=== PATIENT | female | born 1950 | race Caucasian/White ===

== ENCOUNTER 2021-02-19 16:55 | Inpatient (IN) | payer MEDICARE, SELFPAY ==
--- NOTE | ~2021-02-19 | XR_ITS ---
EXAMINATION: XR chest 1V portable DATE: 02/19/2021 17:30 INDICATION: Dyspnea. Productive cough. Possible COVID. TECHNIQUE: frontal view of the chest was obtained. COMPARISON: Chest radiograph dated 05/19/2015 FINDINGS: New opacities in the left mid to lower and right lower lung zones. No pneumothorax or definitive pleu ral effusion. Cardiomegaly. Mild S-shaped thoracic scoliosis. IMPRESSION: 1. New opacities in the left mid to lower and right lower lung zones which could represent atelectasi s and/or pneumonia. 2. Cardiomegaly. Reviewed, dictated and finalized at location . [facility] IMPRESSION: 1. New opacities in the left mid to lower and right lower lung zones which coul d represent atelectasis and/or pneumonia. 2. Cardiomegaly.
--- NOTE | 2021-02-19 17:16 | ECG_ITS ---
Measurements Intervals [place] Rate: 98 P: -66 [place]: 113 QRS: -11 QRSD: 94 T: 62 QT: 364 QTc: 466 Interpretive Statements SINUS RHYTHM FREQUENT ATRIAL PREMATURE COMPLEXES VOLTAGE CRITERIA FOR LVH POOR R WAVE PROGRESSION, ANTERIOR LEADS ABNORMAL ECG Electronically Signed On 02-19-2021 20:04:11 [place] [employer] by Prasanna Joseph D.O.
--- NOTE | 2021-02-19 17:18 | ED.SOB ---
HPI - SOB/Dyspnea General Chief Complaint: Shortness of Breath/Dyspnea Stated Complaint: amb Time Seen by Provider: 02/19/21 17:18 Source: patient and family Mode of arrival: EMS Limitations: no limitations History of Present Illness HPI Narrative: 70-year-old woman brought to the emergency department today by EMS for shortness of breath that started yesterday. Her family called EMS because she was too weak to get up. States that she has no chest pain, fever, vomiting, diarrhea, abdominal pain or dysuria. Her at home has recently tested positive for COVID. Family states that she is having hallucinations. Patient denies this. MD elicited complaint: shortness of breath Pertinent past history: COPD and congestive heart failure Onset (ago): day(s) (1) Timing: constant and progressively worsening Severity: moderate Exacerbating factors: lying flat and exertion Relieving factors: oxygen and bronchodilators Known history of: COPD and congestive heart failure Associated symptoms: cough, sputum production and orthopnea Treatment prior to arrival: oxygen and bronchodilator Related Data Home oxygen amount: 2 liters Home Medications Medication Instructions Recorded Confirmed albuterol sulfate 2 inh INHALATION Q4H PRN 02/19/21 02/19/21 albuterol sulfate 2.5 mg INHALATION QID PRN 02/19/21 02/19/21 furosemide 40 mg PO BID 02/19/21 02/19/21 Allergies Allergy/AdvReac Type Severity Reaction Status Date / Time ciprofloxacin [Cipro] Allergy Intermediate Unknown Verified 02/19/21 17:38 clindamycin Allergy Intermediate Unknown Verified 02/19/21 17:38 lisinopril Allergy Intermediate Unknown Verified 02/19/21 17:38 losartan Allergy Intermediate Unknown Verified 02/19/21 17:38 meloxicam Allergy Intermediate Unknown Verified 02/19/21 17:38 meperidine [Demerol] Allergy Intermediate Unknown Verified 02/19/21 17:38 metoprolol Allergy Intermediate Unknown Verified 02/19/21 17:38 Penicillins Allergy Intermediate Unknown Verified 02/19/21 17:38 sulfamethoxazole [Bactrim] Allergy Intermediate Unknown Verified 02/19/21 17:38 trimethoprim [Bactrim] Allergy Intermediate Unknown Verified 02/19/21 17:38 methylprednisolone Allergy Swelling Verified 02/19/21 17:38 Review of Systems Review of Systems: All systems reviewed & are unremarkable except as noted in HPI and below Constitutional: Constitutional: Denies chills and Denies fever(s) ENT: Denies nasal congestion and Denies sore throat Cardiovascular: Cardiovascular: Denies chest pain and Denies radiating jaw, neck or arm pain Respiratory: Respiratory: Reports chest congestion, Reports cough, Reports dyspnea and Reports wheezing Gastrointestinal: Gastrointestinal: Denies abdominal pain, Denies diarrhea, Denies nausea and Denies vomiting Genitourinary: Genitourinary: Denies hematuria, Denies nocturia and Denies dysuria Musculoskeletal: Musculoskeletal: Denies back pain, Denies arthralgias and Denies joint swelling Integumentary/Breasts: Skin/Breast: Denies pruritus, Denies erythema and Denies rash Neurologic: Denies vertigo, Denies dizziness, Denies syncope, Denies focal weakness and Reports weakness Allergic/Immunologic: Allergic/Immunologic: Denies lip swelling and Denies throat swelling FOR[facility]LY [facility], [facility] Past Medical History Medical History (Updated 02/20/21 @ 03:17 by Andi Raya MD) Congestive heart failure (CHF) COPD (chronic obstructive pulmonary disease) Surgical History Surgical History (Updated 02/19/21 @ 17:25 by Andi Raya MD) History of hysterectomy Social History Social History (Updated 02/19/21 @ 17:25 by Andi Raya MD) Smoking packs per day: 1 Smoking cigarettes per day: 20.0 Years smoked: 31 Smoking pack-years: 31.00 Smoking status: Current every day smoker Tobacco type: cigarettes Alcohol intake: never Substance use: never Substance use type: does not use Living arrangements: with family Spiritual care concerns: No
[2021-02-19] MEDS: ACETAMINOPHEN 500 MG TABLET 1000 MG PO (17:40)
[2021-02-19 17:43] VITALS: BP 186/76; PULSE 99; RESP 20; TEMP 38.1; O2SAT 93
[2021-02-19 18:04] LABS: Base Excess ABG 12.6 mmol/L (0-2); HCO3 ABG 38.9 mmol/L (23-29); Oxygen Content ABG 16.8 %vol (16.0-22.0); Oxygen Saturation ABG 87.9 % (95-97); PCO2 ABG 56.4 mmHg (35-45); PO2 ABG 50.4 mmHg (75-85); Total Hemoglobin 13.8 g/dL (12.0-18.0); pH ABG 7.46 (7.35-7.45)
[2021-02-19 18:07] LABS: Basophils Absolute Auto 0.01 K/mm3 (0.00-0.10); Basophils Percent Auto 0.2 % (0.0-1.0); Hematocrit 43.1 % (35.0-42.0); Hemoglobin 13.7 g/dL (11.7-13.8); Immature Granulocyte Absolute 0.03 K/mm3 (0.00-0.00); Immature Granulocyte Percent A 0.5 % (0.0-0.0); Lymphocytes Percent Auto 11.7 % (18.0-42.0); Mean Corpuscular HGB Conc 31.8 g/dL (32.0-36.0); Mean Corpuscular Hemoglobin 30.3 pg (27.0-31.0); Mean Corpuscular Volume 95.4 fL (78.0-102.0); Mean Platelet Volume 12.3 fl (9.2-11.8); Monocytes Absolute Auto 0.35 K/mm3 (0.10-0.90); Monocytes Percent Auto 5.9 % (2.0-11.0); Neutrophils Absolute Auto 4.9 K/mm3 (1.7-7.2); Neutrophils Percent Auto 81.7 % (50.0-70.0); Platelet Count Result 109 K/mm3 (150-420); Red Blood Count 4.52 M/mm3 (4.20-5.40); Red Cell Distribution Width 12.9 % (11.6-14.4)
[2021-02-19 18:10] LABS: Device NASAL CANNULA; Modified Allen's Test Pass; Site Drawn RIGHT RADIAL
[2021-02-19 18:23] LABS: INR 1.1; Partial Thromboplastin Time 28.8 SEC (23.90-30.70); Prothrombin Time 11.2 Seconds (9.50-12.10)
[2021-02-19 18:27] LABS: D Dimer 1.36 mg/L (0.19-0.50)
[2021-02-19 18:29] LABS: Alanine Aminotransferase 62 U/L (14-59); Albumin Level 3.1 g/dL (3.4-5.0); Alkaline Phosphatase 73 U/L (46-116); Anion Gap 5 mmol/L (8-16); Aspartate Amino Transferase 232 U/L (15-37); Bilirubin,Total 0.8 mg/dL (0.00-1.00); Blood Urea Nitrogen 27 mg/dL (7-18); Calcium 8.4 mg/dL (8.5-10.1); Carbon Dioxide 39 mmol/L (21-32); Chloride 95 mmol/L (98-108); Estimated CRCL calculation 52 ml/min; Estimated Glomerular Filt Rate 53; Glucose 109 mg/dL (70-99); Magnesium 2.2 mg/dL (1.8-2.4); NT Pro B Type Natriuretic Pept 2735 pg/mL (0-125); Osmolality Calculated 294 mOsm/kg (285-295); Sodium 139 mmol/L (136-145); Total Protein 6.9 g/dL (6.4-8.2)
[2021-02-19 18:32] LABS: Troponin I 249.4 ng/L (0.00-60.4)
--- NOTE | 2021-02-19 18:34 | PC.NURSE ---
patient is a full code
[2021-02-19 18:36] VITALS: BP 140/48; PULSE 78; RESP 20; O2SAT 94
[2021-02-19 18:43] LABS: Influenza A QL RT-PCR Negative (Negative); Influenza B QL RT-PCR Negative (Negative); SARS-CoV-2 RNA PCR Positive (Negative)
[2021-02-19 18:47] LABS: Lactic Acid Reflex 1.6 mmol/L (0.4-2.0)
[2021-02-19 19:00] VITALS: PULSE 85
[2021-02-19 19:11] VITALS: BP 129/61; PULSE 88; RESP 24; TEMP 36.6; O2SAT 94
[2021-02-19] MEDS: ASPIRIN 81 MG CHEWABLE TABLET 324 MG PO (19:20)
[2021-02-19] MEDS: ENOXAPARIN 100 MG/ML SYRINGE SUB-Q (19:25)
[2021-02-19 19:55] VITALS: BP 117/95; PULSE 82; RESP 20; TEMP 37.2; O2SAT 93
[2021-02-19 20:45] VITALS: BP 115/61; PULSE 88; RESP 20; TEMP 36.4; O2SAT 94; O2SAT 98; BMI 37.9
--- NOTE | 2021-02-19 20:45 | ADMGEN ---
This patient, Omayra Sampson, was admitted to 2nd Floor Room 211-1. Patient oriented to hospital policies and general routines including ID bracelet, bed and alarms, visiting hours, pain management, procedures, bathroom and other care routines, personal items, smoking policy, room service/diet, and visiting hours. Information on how to activate the Rapid Response Team has been discussed. Patient are encouraged to report perceived risks to care and to ask questions if they do not understand what they are told or what they should do. Patient transferred to bed from chair with pivot transfer with 1 assist. Patient stated that at home she has to have assistance to ambulate but does not use a cane or walker.
[2021-02-19 21:34] LABS: Troponin I 240.2 ng/L (0.00-60.4)
[2021-02-19] MEDS: REMDESIVIR 200 MG/NS 250 ML 200 MG/250 ML BAG 250 MG IVPB (22:25)
[2021-02-20] VITALS (18 sets, daily range): BP systolic 125–149; BP diastolic 48–67; PULSE 78–136; RESP 18–20; TEMP 35.9–36.9; O2SAT 92–98
[2021-02-20] MEDS: FUROSEMIDE INJ 40 MG/4 ML VIAL IV PUSH (00:28)
[2021-02-20 00:46] LABS: Troponin I 211.1 ng/L (0.00-60.4)
--- NOTE | 2021-02-20 04:55 | PC.NURSE ---
Patient's telemetry noted to be reading/alarming A-FIB with heart rate 120's-140's. Patient had just finished being assisted to/from bedside commode per 2 nurses with gait belt. Patient notably SOB with transfer with audible wheezes. O2 on @ 4 lpm/nc. Dr Raya notified with new order received for 12 lead EKG to be done.
--- NOTE | 2021-02-20 05:00 | ECG_ITS ---
Measurements Intervals [place] Rate: 128 P: [place]: 0 QRS: 5 QRSD: 93 T: 75 QT: 309 QTc: 451 Interpretive Statements ATRIAL FIBRILLATION WITH RAPID VENTRICULAR RESPONSE BORDERLINE R WAVE PROGRESSION, ANTERIOR LEADS NONSPECIFIC ST & T-WAVE ABNORMALITY- HIGH LATERAL LEADS ABNORMAL ECG Electronically Signed On 02-20-2021 6:10:53 F[employer] by Prasanna Joseph D.O.
--- NOTE | 2021-02-20 05:20 | PC.NURSE ---
EKG finished. Dr Raya aware of results. No new orders @ this time.
[2021-02-20 05:38] LABS: Basophils Absolute Auto 0.02 K/mm3 (0.00-0.10); Basophils Percent Auto 0.4 % (0.0-1.0); Hematocrit 42.9 % (35.0-42.0); Hemoglobin 13.4 g/dL (11.7-13.8); Immature Granulocyte Absolute 0.02 K/mm3 (0.00-0.00); Immature Granulocyte Percent A 0.4 % (0.0-0.0); Immature Platelet Fraction Pct 8.1 % (1.0-7.0); Lymphocytes Absolute Auto 0.58 K/mm3 (1.10-4.50); Lymphocytes Percent Auto 11.2 % (18.0-42.0); Mean Corpuscular HGB Conc 31.2 g/dL (32.0-36.0); Mean Corpuscular Hemoglobin 29.7 pg (27.0-31.0); Mean Corpuscular Volume 95.1 fL (78.0-102.0); Mean Platelet Volume 12.1 fl (9.2-11.8); Monocytes Absolute Auto 0.25 K/mm3 (0.10-0.90); Monocytes Percent Auto 4.8 % (2.0-11.0); Neutrophils Absolute Auto 4.3 K/mm3 (1.7-7.2); Neutrophils Percent Auto 83.2 % (50.0-70.0); Platelet Count Result 92 K/mm3 (150-420); Red Blood Count 4.51 M/mm3 (4.20-5.40); Red Cell Distribution Width 12.9 % (11.6-14.4); White Blood Count 5.2 K/mm3 (4.8-10.8)
[2021-02-20 05:50] LABS: INR 1.1; Prothrombin Time 11.4 Seconds (9.50-12.10)
[2021-02-20 05:52] LABS: Alanine Aminotransferase 57 U/L (14-59); Albumin Level 2.8 g/dL (3.4-5.0); Alkaline Phosphatase 66 U/L (46-116); Anion Gap 2 mmol/L (8-16); Aspartate Amino Transferase 190 U/L (15-37); Bilirubin,Total 0.6 mg/dL (0.00-1.00); Blood Urea Nitrogen 29 mg/dL (7-18); Calcium 8.2 mg/dL (8.5-10.1); Carbon Dioxide 42 mmol/L (21-32); Chloride 97 mmol/L (98-108); Estimated CRCL calculation 48 ml/min; Estimated Glomerular Filt Rate 48; Glucose 105 mg/dL (70-99); Osmolality Calculated 297 mOsm/kg (285-295); Potassium 3.7 mmol/L (3.5-5.1); Sodium 141 mmol/L (136-145); Total Protein 6.4 g/dL (6.4-8.2)
[2021-02-20 05:53] LABS: Troponin I 219.3 ng/L (0.00-60.4)
[2021-02-20] MEDS: dilTIAZem HCl INJ 25 MG/5 ML VIAL 10 MG IV PUSH (06:12)
[2021-02-20] MEDS: dilTIAZem 100 MG/100 ML 100 MG/100 ML BAG IV CONT (06:13)
[2021-02-20] MEDS: ALBUTEROL SULFATE (*SP) INHALER 4 PUFF INHALATION ×5 (06:36→20:48)
[2021-02-20] MEDS: TOLNAFTATE 1% POWDER 45 GM BTL 1 APPLIC TOPICAL ×2 (09:59→16:01)
[2021-02-20] MEDS: ENOXAPARIN 100 MG/ML SYRINGE SUB-Q ×2 (10:00→20:48)
[2021-02-20] MEDS: UMECLIDINIUM/VILANTEROL 62.5-25 MCG ELLIPTA 1 PUFF INHALATION (10:00)
[2021-02-20] MEDS: FUROSEMIDE INJ 40 MG/4 ML VIAL 20 MG IV PUSH ×2 (11:30→16:00)
--- NOTE | 2021-02-20 11:50 | PC.NURSE ---
Patient taken down for Lung scan and ECHO, patient unable to tolerate laying reclined on back. Patient unable to have tests performed. Patient back to room, sitting up in chair. IV Diltiazem cont infusing. 02@4l on. Call light at side. Lunch tray delivered and set up.
[2021-02-20 12:11] LABS: Base Excess ABG 13.3 mmol/L (0-2); HCO3 ABG 39.6 mmol/L (23-29); Oxygen Content ABG 18.5 %vol (16.0-22.0); Oxygen Saturation ABG 93.4 % (95-97); Oxyhemoglobin 92.7 % (94-100); PCO2 ABG 56.4 mmHg (35-45); PO2 ABG 64.5 mmHg (75-85); Total Hemoglobin 14.2 g/dL (12.0-18.0); pH ABG 7.46 (7.35-7.45)
[2021-02-20 12:12] LABS: Device NASAL CANNULA; Modified Allen's Test Pass; Site Drawn LEFT RADIAL
--- NOTE | 2021-02-20 12:34 | PM.IMHP ---
H&P: HPI History of Present Illness Date/Time: 02/20/21 12:34 Omayra Sampson is a 70 year old female who is being admitted for COVID. Pt states she has COPD and is on home oxygen at 2.5 L/min. She noticed herself becoming more SOB recently. She contracted COVID from her who recently tested positive. Pt states that she will become more SOB with getting up and moving about. According to ER report EMS was called by family as Pt was too weak to get up on her own. PT states that she is a smoker but has not been able to smoke over the last 7 days d/t her increased SOB. She denies fever, chills, chest pain, palpitations, muscle and body aches, abdominal issues, changes in bowel or bladder function. Currently her Oxygen is at 4 L/min. An ABG was obtained and Pt will be changed over to HFNC 50/60%. Will obtain follow up ABG. <SHANKAR Pelletier - Last Filed: 02/20/21 14:01> Chief Complaint: SOB <SHANKAR Pelletier - Last Filed: 02/20/21 14:01> Review of Systems Constitutional: Constitutional: Reports no additional constitutional complaints, Denies body ache(s), Denies chills, Denies fever(s), Denies frequent falls and Denies headache(s) <SHANKAR Pelletier - Last Filed: 02/20/21 14:01> Cardiovascular: Cardiovascular: Reports no additional cardiovascular complaints, Denies chest pain, Denies chest pain at rest and Denies lightheadedness <SHANKAR Pelletier - Last Filed: 02/20/21 14:01> Respiratory: Respiratory: Reports no additional respiratory complaints, Denies cough, Denies hemoptysis, Reports dyspnea and Reports dyspnea on exertion <SHANKAR Pelletier - Last Filed: 02/20/21 14:01> Gastrointestinal: Gastrointestinal: Reports no additional gastrointestinal complaints <SHANKAR Pelletier - Last Filed: 02/20/21 14:01> Genitourinary: Genitourinary: Reports no additional female genitourinary complaints <SHANKAR Pelletier - Last Filed: 02/20/21 14:01> Musculoskeletal: Musculoskeletal: Reports no additional musculoskeletal complaints <SHANKAR Pelletier - Last Filed: 02/20/21 14:01> Neurologic: Reports system reviewed and no additional complaints, except as documented <SHANKAR Pelletier - Last Filed: 02/20/21 14:01> Psychiatric: Psychiatric: Reports no additional psychiatric complaints <SHANKAR Pelletier - Last Filed: 02/20/21 14:01> [facility] Past Medical History Medical History: Medical History (Updated 02/20/21 @ 13:57 by SHANKAR Pelletier) Acute upper respiratory infection (02/14/15) CHF (congestive heart failure) (05/23/15) Chronic cough (12/16/14) Cigarette smoker (01/28/17) COPD (chronic obstructive pulmonary disease) Fatigue (12/24/16) Hip pain (06/27/15) HTN (hypertension) (12/27/14) Rash (12/18/16) <SHANKAR Pelletier - Last Filed: 02/20/21 14:01> Surgical History Surgical History: Surgical History History of hysterectomy <SHANKAR Pelletier - Last Filed: 02/20/21 14:01> Social History Social History: Social History Smoking packs per day: 1 Smoking cigarettes per day: 20.0 Years smoked: 31 Smoking pack-years: 31.00 Smoking status: Current every day smoker Tobacco type: cigarettes Alcohol intake: never Substance use: never Substance use type: does not use Spiritual care concerns: No <SHANKAR Pelletier - Last Filed: 02/20/21 14:01> Meds Home Medications and Allergies Home medications: Home Medications Medication Instructions Recorded Confirmed Type albuterol sulfate 2 inh INHALATION Q4H PRN 02/19/21 02/19/21 History albuterol sulfate 2.5 mg INHALATION QID PRN #90 ml 02/27/21 Rx apixaban [Eliquis] 5 mg PO BID #120 tablet 02/27/21 Rx cefdinir 300 mg PO Q12H 5 Days #10 cap 02/27/21 Rx clopidogrel 75 mg PO QAM #30 tablet 02/27/21 Rx dexamethasone 6 mg PO DAILY 3 Days #3 tablet
[2021-02-20 13:54] LABS: Base Excess ABG 15.9 mmol/L (0-2); HCO3 ABG 43.3 mmol/L (23-29); Oxygen Content ABG 19.2 %vol (16.0-22.0); Oxygen Saturation ABG 97.3 % (95-97); Oxyhemoglobin 96.8 % (94-100); PCO2 ABG 64.2 mmHg (35-45); PO2 ABG 102.8 mmHg (75-85); pH ABG 7.45 (7.35-7.45)
[2021-02-20 13:55] LABS: Device HIGH FLOW THERAPY; Fractional Inspired Oxygen 60 %; Modified Allen's Test Pass; Site Drawn RIGHT RADIAL
[2021-02-20] MEDS: ACETAMINOPHEN 325 MG TABLET 650 MG PO (16:01)
[2021-02-20] MEDS: REMDESIVIR 100 MG/NS 250 ML 100 MG/250 ML BAG 250 MG IVPB (22:08)
[2021-02-20] MEDS: ONDANSETRON INJ 4 MG/2 ML VIAL IV PUSH (22:49)
[2021-02-21] VITALS (9 sets, daily range): BP systolic 128–154; BP diastolic 46–78; PULSE 18–98; RESP 18–20; TEMP 36.2–36.9; O2SAT 92–98
[2021-02-21 05:50] LABS: Hematocrit 42.1 % (35.0-42.0); Hemoglobin 13.4 g/dL (11.7-13.8); Immature Granulocyte Absolute 0.01 K/mm3 (0.00-0.00); Immature Granulocyte Percent A 0.2 % (0.0-0.0); Immature Platelet Fraction Pct 8.6 % (1.0-7.0); Lymphocytes Absolute Auto 0.48 K/mm3 (1.10-4.50); Lymphocytes Percent Auto 11.5 % (18.0-42.0); Mean Corpuscular HGB Conc 31.8 g/dL (32.0-36.0); Mean Corpuscular Hemoglobin 30.5 pg (27.0-31.0); Mean Corpuscular Volume 95.7 fL (78.0-102.0); Mean Platelet Volume 12.3 fl (9.2-11.8); Monocytes Absolute Auto 0.24 K/mm3 (0.10-0.90); Monocytes Percent Auto 5.7 % (2.0-11.0); Neutrophils Absolute Auto 3.5 K/mm3 (1.7-7.2); Neutrophils Percent Auto 82.6 % (50.0-70.0); Platelet Count Result 113 K/mm3 (150-420); White Blood Count 4.2 K/mm3 (4.8-10.8)
[2021-02-21 06:01] LABS: INR 1.1
[2021-02-21 06:16] LABS: Alanine Aminotransferase 51 U/L (14-59); Albumin Level 2.6 g/dL (3.4-5.0); Alkaline Phosphatase 63 U/L (46-116); Anion Gap -2 mmol/L (8-16); Aspartate Amino Transferase 133 U/L (15-37); Bilirubin,Total 0.4 mg/dL (0.00-1.00); Blood Urea Nitrogen 31 mg/dL (7-18); Calcium 8.5 mg/dL (8.5-10.1); Carbon Dioxide 44 mmol/L (21-32); Chloride 100 mmol/L (98-108); Estimated CRCL calculation 53 ml/min; Estimated Glomerular Filt Rate 54; Glucose 140 mg/dL (70-99); NT Pro B Type Natriuretic Pept 4700 pg/mL (0-125); Osmolality Calculated 302 mOsm/kg (285-295); Potassium 4.3 mmol/L (3.5-5.1); Sodium 142 mmol/L (136-145); Total Protein 6.2 g/dL (6.4-8.2)
[2021-02-21] MEDS: ALBUTEROL SULFATE (*SP) INHALER 4 PUFF INHALATION ×4 (07:03→20:18)
[2021-02-21 08:40] LABS: Base Excess ABG 15.1 mmol/L (0-2); HCO3 ABG 43.4 mmol/L (23-29); Oxygen Saturation ABG 95.7 % (95-97); Oxyhemoglobin 95.3 % (94-100); PO2 ABG 83.3 mmHg (75-85); Total Hemoglobin 13.4 g/dL (12.0-18.0)
[2021-02-21 08:45] LABS: Device HIGH FLOW NASAL CANN; Modified Allen's Test Pass; Site Drawn RIGHT RADIAL
[2021-02-21] MEDS: UMECLIDINIUM/VILANTEROL 62.5-25 MCG ELLIPTA 1 PUFF INHALATION (09:02)
[2021-02-21] MEDS: ENOXAPARIN 100 MG/ML SYRINGE SUB-Q ×2 (09:03→20:17)
[2021-02-21] MEDS: FUROSEMIDE INJ 40 MG/4 ML VIAL 20 MG IV PUSH ×2 (09:03→18:05)
[2021-02-21] MEDS: ACETAMINOPHEN 325 MG TABLET 650 MG PO ×2 (09:04→22:04)
[2021-02-21] MEDS: TOLNAFTATE 1% POWDER 45 GM BTL 1 APPLIC TOPICAL ×2 (09:06→18:07)
--- NOTE | 2021-02-21 12:54 | PM.IMPN ---
Progress Note: A&P Assessment and Plan (1) COVID-19: Code(s): U07.1 - COVID-19 <Ashok DuffVENKATA-C - Last Filed: 02/21/21 13:21> Status: Acute <Ashok Duff ASSOCIATE PRODUCER-C - Last Filed: 02/21/21 13:21> Assessment and Plan: Remdesivir, Decadron, Lovenox, Albuterol, Supplemental Oxygen with HFNC 50/60% with SpO2 @ 97%,Rocephin, Pt states she is allergic to Azithromycin, Post intervention ABG: pH 7.45, pCO2 64.2, pO2 102.8, HCO3 43.3, O2 Sat 97.3; PT/INR 11.4/1.1, BUN 29, Cr 1.13, eCrCl 48, AST/ALT 57/66 02/21/2021 Lung sounds slight improved, no rales but diminished on the left posteriorly, continue with above regimen, pCO2 increased with a slight decreased in pO2, settings on HFNC changed, see RT/RN report, PT/INR 12.1, BUN 31, Cr 1.02, eCrCl 53, AST/ALT 133/51 <Ashok Duff ASSOCIATE PRODUCER-C - Last Filed: 02/21/21 13:21> (2) CHF (congestive heart failure): Onset Date: 05/23/15 <Ashok DuffRICN-C - Last Filed: 02/21/21 13:21> Code(s): I50.9 - Heart failure, unspecified <Ashok DuffVENKATA-C - Last Filed: 02/21/21 13:21> Status: Acute <Ashok Duff ASSOCIATE PRODUCER-C - Last Filed: 02/21/21 13:21> Assessment and Plan: BNP 2735, Lasix 40 mg in ER with 20 mg BID currently, monitoring I&O, supplemental Oxygen as noted above, monitor BNP and SpO2 02/21/2021 BNP increased to 4700, continue with Lasix, renal function improved, Pt states breathing improved <Ashok Duff ASSOCIATE PRODUCER-C - Last Filed: 02/21/21 13:21> (3) Atrial fibrillation with rapid ventricular response: Code(s): I48.91 - Unspecified atrial fibrillation <Ashok Solanastasiya ASSOCIATE PRODUCER-C - Last Filed: 02/21/21 13:21> Status: Acute <Ashok Duff ASSOCIATE PRODUCER-C - Last Filed: 02/21/21 13:21> Assessment and Plan: Cardizem drip at 7.5 mg/hr, will convert to Cardizem CD 240 mg PO Daily, Currently Lovenox, continue to monitor, no CP 02/21/2021 Pt unable to lay down for Echocardiogram nor for CTA of the chest for PE, D-Dimer was 1.36 on 02/19/2021, rate controlled with Cardizem <Ashok Solanastasiya, ASSOCIATE PRODUCER-C - Last Filed: 02/21/21 13:21> (4) Acute kidney injury: Code(s): N17.9 - Acute kidney failure, unspecified <Ashok Solanastasiya ASSOCIATE PRODUCER-C - Last Filed: 02/21/21 13:21> Status: Acute <Ashok Solanastasiya ASSOCIATE PRODUCER-C - Last Filed: 02/21/21 13:21> Assessment and Plan: eCrCl 52 - 48, Lasix for CHF, monitor renal function 02/21/2021 eCrCl improved to 1.02, continue to monitor d/t COVID regimen and MINNA <Ashok ChahalJavier Ebenezeranastasiya ASSOCIATE PRODUCER-C - Last Filed: 02/21/21 13:21> (5) Dyspnea: Onset Date: 05/19/15 <Ashok Solanastasiya ASSOCIATE PRODUCER-C - Last Filed: 02/21/21 13:21> Code(s): R06.00 - Dyspnea, unspecified <Ashok ChahalJavier Ebenezeranastasiya, ASSOCIATE PRODUCER-C - Last Filed: 02/21/21 13:21> Status: Acute <Ashok Alexys Solanastasiya, ASSOCIATE PRODUCER-C - Last Filed: 02/21/21 13:21> Assessment and Plan: Monitoring A fib, cardiac monitoring, SpO2 monitoring, currently HFNC 50/60% SpO2 97% 02/21/2021 Improved, still unable to lay down for other diagnostic studies <Ashok ChahalJavier Ebenezeranastasiya ASSOCIATE PRODUCER-C - Last Filed: 02/21/21 13:21> (6) COPD (chronic obstructive pulmonary disease): Qualifiers: COPD type: emphysema Emphysema type: unspecified Qualified Code(s): J43.9 - Emphysema, unspecified <RIC PelletierN-C - Last Filed: 02/21/21 13:21> Code(s): J44.9 - Chronic obstructive pulmonary disease, unspecified <Ashok Duff ASSOCIATE PRODUCER-C - Last Filed: 02/21/21 13:21> Status: Acute <RIC PelletierN-C - Last Filed: 02/21/21 13:21> Assessment and Plan: Albuterol, Anoro Ellipta <RIC PelletierN-C - Last Filed: 02/21/21 13:21> (7) Elevated troponin: Code(s): R77.8 - Other specified abnormalities of plasma proteins <RIC PelletierN-C - Last Filed: 02/21/21 13:21> Status: Acute <Ashok Duff ASSOCIATE PRODUCER-C - Last Filed: 02/21/21 13:21> Assessment and Plan:
[2021-02-21 13:30] LABS: Base Excess ABG 9.6 mmol/L (0-2); Device HIGH FLOW NASAL CANN; Fractional Inspired Oxygen 40 %; HCO3 ABG 35.6 mmol/L (23-29); Modified Allen's Test Pass; Oxygen Content ABG 18.5 %vol (16.0-22.0); Oxygen Saturation ABG 93.6 % (95-97); Oxyhemoglobin 93.1 % (94-100); PCO2 ABG 53.4 mmHg (35-45); PO2 ABG 69.7 mmHg (75-85); Site Drawn RIGHT RADIAL; Total Hemoglobin 14.1 g/dL (12.0-18.0); pH ABG 7.44 (7.35-7.45)
[2021-02-21] MEDS: REMDESIVIR 100 MG/NS 250 ML 100 MG/250 ML BAG 250 MG IVPB (22:06)
[2021-02-22] VITALS (11 sets, daily range): BP systolic 126–148; BP diastolic 51–61; PULSE 73–85; RESP 16–26; TEMP 35.8–36.7; O2SAT 94–97
--- NOTE | 2021-02-22 00:45 | PC.NURSE ---
Upon assessment and entering room, pt resting in bed and has no c/o at this time. Hi flow O2 therapy in place at 55L and 40%. Pt maintaining Spo2 of 95% at this time. Mon. showing A Fib. Pt is alert and has call valdivia at side.
--- NOTE | 2021-02-22 02:12 | PC.NURSE ---
Pt repositioned in bed for comfort, reports sleeping on and off, no other requests at this time. Call valdivia at pt side.
--- NOTE | 2021-02-22 03:31 | PC.NURSE ---
Pt sleeping, no distress noted, hi flow O2 in place and mon continues to show Afib c rate of 70.
--- NOTE | 2021-02-22 05:10 | PC.NURSE ---
Pt assisted from bed to BSC and jhoana well. Pt had no BM at this time, then SBA back to bed. Hi flow O2 continues, call valdivia at pt side.
[2021-02-22 05:16] LABS: Hematocrit 43.4 % (35.0-42.0); Hemoglobin 13.8 g/dL (11.7-13.8); Mean Corpuscular HGB Conc 31.8 g/dL (32.0-36.0); Mean Corpuscular Hemoglobin 30.7 pg (27.0-31.0); Mean Corpuscular Volume 96.7 fL (78.0-102.0); Mean Platelet Volume 11.7 fl (9.2-11.8); Platelet Count Result 149 K/mm3 (150-420); Red Blood Count 4.49 M/mm3 (4.20-5.40); Red Cell Distribution Width 13.1 % (11.6-14.4); White Blood Count 6.9 K/mm3 (4.8-10.8)
[2021-02-22 05:31] LABS: INR 1.2; Prothrombin Time 12.3 Seconds (9.50-12.10)
[2021-02-22 05:39] LABS: Alanine Aminotransferase 49 U/L (14-59); Albumin Level 2.7 g/dL (3.4-5.0); Alkaline Phosphatase 61 U/L (46-116); Anion Gap 1 mmol/L (8-16); Aspartate Amino Transferase 94 U/L (15-37); Bilirubin,Total 0.5 mg/dL (0.00-1.00); Blood Urea Nitrogen 37 mg/dL (7-18); Calcium 8.4 mg/dL (8.5-10.1); Carbon Dioxide 43 mmol/L (21-32); Chloride 98 mmol/L (98-108); Estimated CRCL calculation 48 ml/min; Estimated Glomerular Filt Rate 47; Glucose 150 mg/dL (70-99); NT Pro B Type Natriuretic Pept 3549 pg/mL (0-125); Osmolality Calculated 305 mOsm/kg (285-295); Potassium 4.2 mmol/L (3.5-5.1); Sodium 142 mmol/L (136-145); Total Protein 6.4 g/dL (6.4-8.2)
[2021-02-22] MEDS: ALBUTEROL SULFATE (*SP) INHALER 4 PUFF INHALATION ×4 (06:06→21:30)
[2021-02-22] MEDS: ONDANSETRON INJ 4 MG/2 ML VIAL IV PUSH (06:32)
--- NOTE | 2021-02-22 07:57 | PC.NURSE ---
Pt refuses to have echo done. States They know I can't lie flat. RN called radiology to let them know and David JUSTIN was informed.
[2021-02-22] MEDS: ENOXAPARIN 100 MG/ML SYRINGE SUB-Q ×2 (08:00→21:30)
[2021-02-22] MEDS: TOLNAFTATE 1% POWDER 45 GM BTL 1 APPLIC TOPICAL ×2 (09:15→17:30)
[2021-02-22] MEDS: UMECLIDINIUM/VILANTEROL 62.5-25 MCG ELLIPTA 1 PUFF INHALATION (09:39)
[2021-02-22] MEDS: FUROSEMIDE INJ 40 MG/4 ML VIAL 20 MG IV PUSH ×2 (09:41→17:30)
[2021-02-22] MEDS: CLOPIDOGREL BISULFATE 75 MG TABLET PO (09:43)
[2021-02-22] MEDS: ACETAMINOPHEN 325 MG TABLET 650 MG PO (09:43)
--- NOTE | 2021-02-22 12:41 | PM.IMPN ---
Progress Note: A&P Assessment and Plan (1) COVID-19: Code(s): U07.1 - COVID-19 <SHANKAR Pelletier - Last Filed: 02/22/21 13:40> Status: Acute <Ashok Alexys SHANKAR Duff - Last Filed: 02/22/21 13:40> Assessment and Plan: Remdesivir, Decadron, Lovenox, Albuterol, Supplemental Oxygen with HFNC 50/60% with SpO2 @ 97%,Rocephin, Pt states she is allergic to Azithromycin, Post intervention ABG: pH 7.45, pCO2 64.2, pO2 102.8, HCO3 43.3, O2 Sat 97.3; PT/INR 11.4/1.1, BUN 29, Cr 1.13, eCrCl 48, AST/ALT 57/66 02/21/2021 Lung sounds slight improved, no rales but diminished on the left posteriorly, continue with above regimen, pCO2 increased with a slight decreased in pO2, settings on HFNC changed, see RT/RN report, PT/INR 121.1, BUN 31, Cr 1.02, eCrCl 53, AST/ALT 133/51 02/22/2021 Labs stable, breathing improved, weaning HFNC, Last ABG from 02/21/21: pH 7.44, pCO2 53.4, pO2 69.7, HCO3 35.6, O2 Sat 93.6 <SHANKAR Pelletier - Last Filed: 02/22/21 13:40> (2) CHF (congestive heart failure): Onset Date: 05/23/15 <SHANKAR Pelletier - Last Filed: 02/22/21 13:40> Code(s): I50.9 - Heart failure, unspecified <SHANKAR Pelletier - Last Filed: 02/22/21 13:40> Status: Acute <SHANKAR Pelletier - Last Filed: 02/22/21 13:40> Assessment and Plan: BNP 2735, Lasix 40 mg in ER with 20 mg BID currently, monitoring I&O, supplemental Oxygen as noted above, monitor BNP and SpO2 02/21/2021 BNP increased to 4700, continue with Lasix, renal function improved, Pt states breathing improved 02/22/2021 BNP 3549, no rales, breathing improved, weaning HFNC, continue as above <Ashok ChahalRIC ReeseN-C - Last Filed: 02/22/21 13:40> (3) Atrial fibrillation with rapid ventricular response: Code(s): I48.91 - Unspecified atrial fibrillation <Ashok TirsoJavier Duff MULT AU MATIC OPERATOR-C - Last Filed: 02/22/21 13:40> Status: Acute <Ashok TirsoJavier Duff MULT AU MATIC OPERATOR-C - Last Filed: 02/22/21 13:40> Assessment and Plan: Cardizem drip at 7.5 mg/hr, will convert to Cardizem CD 240 mg PO Daily, Currently Lovenox, continue to monitor, no CP 02/21/2021 Pt unable to lay down for Echocardiogram nor for CTA of the chest for PE, D-Dimer was 1.36 on 02/19/2021, rate controlled with Cardizem 02/22/2021 Will continue with Therapeutic Lovenox for potential PE (unable to get studies as Pt is unable to lay supine d/t SOB) <Ashok ChahalJavier Duff MULT AU MATIC OPERATOR-C - Last Filed: 02/22/21 13:40> (4) Acute kidney injury: Code(s): N17.9 - Acute kidney failure, unspecified <Ashok ChahalJavier Duff MULT AU MATIC OPERATOR-C - Last Filed: 02/22/21 13:40> Status: Acute <Ashok ChahalJavier Duff MULT AU MATIC OPERATOR-C - Last Filed: 02/22/21 13:40> Assessment and Plan: eCrCl 52 - 48, Lasix for CHF, monitor renal function 02/21/2021 eCrCl improved to 1.02, continue to monitor d/t COVID regimen and MINNA 02/22/2021 Renal function stable, continue to monitor <Ashok TirsoJavier Duff MULT AU MATIC OPERATOR-C - Last Filed: 02/22/21 13:40> (5) Dyspnea: Onset Date: 05/19/15 <Ashok TirsoJavier Duff MULT AU MATIC OPERATOR-C - Last Filed: 02/22/21 13:40> Code(s): R06.00 - Dyspnea, unspecified <Ashok TirsoJavier Duff MULT AU MATIC OPERATOR-C - Last Filed: 02/22/21 13:40> Status: Acute <SHANKAR Pelletier - Last Filed: 02/22/21 13:40> Assessment and Plan: Monitoring A fib, cardiac monitoring, SpO2 monitoring, currently HFNC 50/60% SpO2 97% 02/21/2021 Improved, still unable to lay down for other diagnostic studies 02/22/2021 Pt does not lay supine at home d/t SOB, breathing improved and weaning O2 <SHANKAR Pelletier - Last Filed: 02/22/21 13:40> (6) COPD (chronic obstructive pulmonary disease): Qualifiers: COPD type: emphysema Emphysema type: unspecified Qualified Code(s): J43.9 - Emphysema, unspecified <SHANKAR Pelletier - Last Filed: 02/22/21 13:40> Code(s): J44.9 - Chronic obstructive pulmonary disease, unspecified <SHANKAR Pelletier - Last
[2021-02-22] MEDS: REMDESIVIR 100 MG/NS 250 ML 100 MG/250 ML BAG 250 MG IVPB (21:31)
[2021-02-23] VITALS (7 sets, daily range): BP systolic 128–152; BP diastolic 52–80; PULSE 67–97; RESP 14–96; TEMP 35.8–36.7; O2SAT 94–98
[2021-02-23 05:18] LABS: Basophils Absolute Auto 0.01 K/mm3 (0.00-0.10); Basophils Percent Auto 0.1 % (0.0-1.0); Hematocrit 41.4 % (35.0-42.0); Hemoglobin 13.1 g/dL (11.7-13.8); Immature Granulocyte Absolute 0.05 K/mm3 (0.00-0.00); Immature Granulocyte Percent A 0.7 % (0.0-0.0); Lymphocytes Percent Auto 8.3 % (18.0-42.0); Mean Corpuscular HGB Conc 31.6 g/dL (32.0-36.0); Mean Corpuscular Hemoglobin 30.4 pg (27.0-31.0); Mean Corpuscular Volume 96.1 fL (78.0-102.0); Mean Platelet Volume 11.3 fl (9.2-11.8); Monocytes Percent Auto 6.9 % (2.0-11.0); Neutrophils Absolute Auto 6.1 K/mm3 (1.7-7.2); Platelet Count Result 142 K/mm3 (150-420); Red Blood Count 4.31 M/mm3 (4.20-5.40); White Blood Count 7.3 K/mm3 (4.8-10.8)
[2021-02-23 05:31] LABS: INR 1.2; Prothrombin Time 12.3 Seconds (9.50-12.10)
[2021-02-23 05:46] LABS: Alanine Aminotransferase 51 U/L (14-59); Albumin Level 2.7 g/dL (3.4-5.0); Alkaline Phosphatase 57 U/L (46-116); Anion Gap 1 mmol/L (8-16); Aspartate Amino Transferase 71 U/L (15-37); Bilirubin,Total 0.4 mg/dL (0.00-1.00); Blood Urea Nitrogen 33 mg/dL (7-18); Calcium 8.4 mg/dL (8.5-10.1); Carbon Dioxide 43 mmol/L (21-32); Chloride 100 mmol/L (98-108); Estimated CRCL calculation 57 ml/min; Estimated Glomerular Filt Rate 59; Glucose 157 mg/dL (70-99); NT Pro B Type Natriuretic Pept 3034 pg/mL (0-125); Osmolality Calculated 308 mOsm/kg (285-295); Sodium 144 mmol/L (136-145); Total Protein 6.2 g/dL (6.4-8.2)
[2021-02-23] MEDS: ALBUTEROL SULFATE (*SP) INHALER 4 PUFF INHALATION ×4 (05:58→19:46)
[2021-02-23] MEDS: ENOXAPARIN 100 MG/ML SYRINGE SUB-Q ×2 (07:48→19:46)
[2021-02-23] MEDS: CLOPIDOGREL BISULFATE 75 MG TABLET PO (09:22)
[2021-02-23] MEDS: FUROSEMIDE INJ 40 MG/4 ML VIAL 20 MG IV PUSH ×2 (09:23→16:43)
[2021-02-23] MEDS: UMECLIDINIUM/VILANTEROL 62.5-25 MCG ELLIPTA 1 PUFF INHALATION (11:03)
[2021-02-23] MEDS: TOLNAFTATE 1% POWDER 45 GM BTL 1 APPLIC TOPICAL ×2 (11:03→16:43)
--- NOTE | 2021-02-23 12:38 | PM.IMPN ---
Progress Note: A&P Assessment and Plan (1) COVID-19: Code(s): U07.1 - COVID-19 Status: Acute Assessment and Plan: Remdesivir, Decadron, Lovenox, Albuterol, Supplemental Oxygen with HFNC 50/60% with SpO2 @ 97%,Rocephin, Pt states she is allergic to Azithromycin, Post intervention ABG: pH 7.45, pCO2 64.2, pO2 102.8, HCO3 43.3, O2 Sat 97.3; PT/INR 11.4/1.1, BUN 29, Cr 1.13, eCrCl 48, AST/ALT 57/66 02/21/2021 Lung sounds slight improved, no rales but diminished on the left posteriorly, continue with above regimen, pCO2 increased with a slight decreased in pO2, settings on HFNC changed, see RT/RN report, PT/INR 01/31.1, BUN 31, Cr 1.02, eCrCl 53, AST/ALT 133/51 02/22/2021 Labs stable, breathing improved, weaning HFNC, Last ABG from 02/21/21: pH 7.44, pCO2 53.4, pO2 69.7, HCO3 35.6, O2 Sat 93.6 02/23/2021 Last dose of Remdesivir should be tomorrow, continue current therapies, weaning O2 (2) CHF (congestive heart failure): Onset Date: 05/23/15 Code(s): I50.9 - Heart failure, unspecified Status: Acute Assessment and Plan: BNP 2735, Lasix 40 mg in ER with 20 mg BID currently, monitoring I&O, supplemental Oxygen as noted above, monitor BNP and SpO2 02/21/2021 BNP increased to 4700, continue with Lasix, renal function improved, Pt states breathing improved 02/22/2021 BNP 3549, no rales, breathing improved, weaning HFNC, continue as above 02/23/2021 BNP continues to trend down, lungs improved (3) Atrial fibrillation with rapid ventricular response: Code(s): I48.91 - Unspecified atrial fibrillation Status: Acute Assessment and Plan: Cardizem drip at 7.5 mg/hr, will convert to Cardizem CD 240 mg PO Daily, Currently Lovenox, continue to monitor, no CP 02/21/2021 Pt unable to lay down for Echocardiogram nor for CTA of the chest for PE, D-Dimer was 1.36 on 02/19/2021, rate controlled with Cardizem 02/22/2021 Will continue with Therapeutic Lovenox for potential PE (unable to get studies as Pt is unable to lay supine d/t SOB) 02/23/2021 Rate well controlled with Cardizem CD 240mg. (4) Acute kidney injury: Code(s): N17.9 - Acute kidney failure, unspecified Status: Acute Assessment and Plan: eCrCl 52 - 48, Lasix for CHF, monitor renal function 02/21/2021 eCrCl improved to 1.02, continue to monitor d/t COVID regimen and MINNA 02/22/2021 Renal function stable, continue to monitor 02/23/2021 Near resolution (5) Dyspnea: Onset Date: 05/19/15 Code(s): R06.00 - Dyspnea, unspecified Status: Acute Assessment and Plan: Monitoring A fib, cardiac monitoring, SpO2 monitoring, currently HFNC 50/60% SpO2 97% 02/21/2021 Improved, still unable to lay down for other diagnostic studies 02/22/2021 Pt does not lay supine at home d/t SOB, breathing improved and weaning O2 02/23/2021 Improved (6) COPD (chronic obstructive pulmonary disease): Qualifiers: COPD type: emphysema Emphysema type: unspecified Qualified Code(s): J43.9 - Emphysema, unspecified Code(s): J44.9 - Chronic obstructive pulmonary disease, unspecified Status: Acute Assessment and Plan: Albuterol, Anoro Ellipta (7) Elevated troponin: Code(s): R77.8 - Other specified abnormalities of plasma proteins Status: Acute Assessment and Plan: 249.4, 240.2, 211.1, 219.3 trending down, no active chest pain, has acute kidney injury, elevated BNP, increased oxygen demand r/t COPD and COVID, New onset Atrial Fibrillation w/ RVR 02/21/2021 no CP, will continue to monitor, Telemetry A fib 70-80 02/22/2021 No changes (8) HTN (hypertension): Onset Date: 12/27/14 Code(s): I10 - Essential (primary) hypertension Status: Acute Assessment and Plan: Continue Lasix but as IV dosing. 02/21/2021 VSS no need to adjust medications at this time. 02/22/2021 stable Additional Plan I have examined this patient and agree with the physical examination, assessment and p
[2021-02-23] MEDS: REMDESIVIR 100 MG/NS 250 ML 100 MG/250 ML BAG 250 MG IVPB (21:51)
[2021-02-24] VITALS (9 sets, daily range): BP systolic 119–152; BP diastolic 41–68; PULSE 62–89; RESP 14–20; TEMP 35.8–36.7; O2SAT 94–99
[2021-02-24 05:20] LABS: Hematocrit 42.1 % (35.0-42.0); Hemoglobin 13.2 g/dL (11.7-13.8); Mean Corpuscular HGB Conc 31.4 g/dL (32.0-36.0); Mean Corpuscular Hemoglobin 30.3 pg (27.0-31.0); Mean Corpuscular Volume 96.6 fL (78.0-102.0); Mean Platelet Volume 11.1 fl (9.2-11.8); Platelet Count Result 149 K/mm3 (150-420); Red Blood Count 4.36 M/mm3 (4.20-5.40); Red Cell Distribution Width 13.1 % (11.6-14.4); White Blood Count 6.7 K/mm3 (4.8-10.8)
[2021-02-24 05:54] LABS: Alanine Aminotransferase 54 U/L (14-59); Albumin Level 2.8 g/dL (3.4-5.0); Alkaline Phosphatase 60 U/L (46-116); Anion Gap 0 mmol/L (8-16); Aspartate Amino Transferase 54 U/L (15-37); Bilirubin,Total 0.5 mg/dL (0.00-1.00); Blood Urea Nitrogen 31 mg/dL (7-18); Calcium 8.4 mg/dL (8.5-10.1); Carbon Dioxide 44 mmol/L (21-32); Chloride 100 mmol/L (98-108); Estimated CRCL calculation 58 ml/min; Estimated Glomerular Filt Rate 60; Glucose 159 mg/dL (70-99); NT Pro B Type Natriuretic Pept 3865 pg/mL (0-125); Osmolality Calculated 307 mOsm/kg (285-295); Potassium 4.2 mmol/L (3.5-5.1); Sodium 144 mmol/L (136-145); Total Protein 6.3 g/dL (6.4-8.2)
[2021-02-24] MEDS: ALBUTEROL SULFATE (*SP) INHALER 4 PUFF INHALATION ×4 (06:41→20:43)
--- NOTE | 2021-02-24 06:41 | PM.IMPN ---
Progress Note: A&P Assessment and Plan (1) COVID-19: Code(s): U07.1 - COVID-19 <SHANKAR Pelletier - Last Filed: 02/24/21 10:23> Status: Acute <SHANKAR Pelletier - Last Filed: 02/24/21 10:23> Assessment and Plan: Remdesivir, Decadron, Lovenox, Albuterol, Supplemental Oxygen with HFNC 50/60% with SpO2 @ 97%,Rocephin, Pt states she is allergic to Azithromycin, Post intervention ABG: pH 7.45, pCO2 64.2, pO2 102.8, HCO3 43.3, O2 Sat 97.3; PT/INR 11.4/1.1, BUN 29, Cr 1.13, eCrCl 48, AST/ALT 57/66 02/21/2021 Lung sounds slight improved, no rales but diminished on the left posteriorly, continue with above regimen, pCO2 increased with a slight decreased in pO2, settings on HFNC changed, see RT/RN report, PT/INR 12/1.1, BUN 31, Cr 1.02, eCrCl 53, AST/ALT 133/51 02/22/2021 Labs stable, breathing improved, weaning HFNC, Last ABG from 02/21/21: pH 7.44, pCO2 53.4, pO2 69.7, HCO3 35.6, O2 Sat 93.6 02/23/2021 Last dose of Remdesivir should be tomorrow, continue current therapies, weaning O2 02/24/2021 currently HFNC 50/47%, continue interventions <SHANKAR Pelletier - Last Filed: 02/24/21 10:23> (2) CHF (congestive heart failure): Onset Date: 05/23/15 <SHANKAR Pelletier - Last Filed: 02/24/21 10:23> Code(s): I50.9 - Heart failure, unspecified <SHANKAR Pelletier - Last Filed: 02/24/21 10:23> Status: Acute <SHANKAR Pelletier - Last Filed: 02/24/21 10:23> Assessment and Plan: BNP 2735, Lasix 40 mg in ER with 20 mg BID currently, monitoring I&O, supplemental Oxygen as noted above, monitor BNP and SpO2 02/21/2021 BNP increased to 4700, continue with Lasix, renal function improved, Pt states breathing improved 02/22/2021 BNP 3549, no rales, breathing improved, weaning HFNC, continue as above 02/23/2021 BNP continues to trend down, lungs improved 02/24/2021 no rales still with peripheral edema no chest pain no complaints regarding breathing <SHANKAR Pelletier - Last Filed: 02/24/21 10:23> (3) Atrial fibrillation with rapid ventricular response: Code(s): I48.91 - Unspecified atrial fibrillation <SHANKAR Pelletier - Last Filed: 02/24/21 10:23> Status: Acute <SHANKAR Pelletier - Last Filed: 02/24/21 10:23> Assessment and Plan: Cardizem drip at 7.5 mg/hr, will convert to Cardizem CD 240 mg PO Daily, Currently Lovenox, continue to monitor, no CP 02/21/2021 Pt unable to lay down for Echocardiogram nor for CTA of the chest for PE, D-Dimer was 1.36 on 02/19/2021, rate controlled with Cardizem 02/22/2021 Will continue with Therapeutic Lovenox for potential PE (unable to get studies as Pt is unable to lay supine d/t SOB) 02/23/2021 Rate well controlled with Cardizem CD 240mg. 02/24/2021 Start Eliquis 5 mg BID <SHANKAR Pelletier - Last Filed: 02/24/21 10:23> (4) Acute kidney injury: Code(s): N17.9 - Acute kidney failure, unspecified <SHANKAR Pelletier - Last Filed: 02/24/21 10:23> Status: Acute <SHANKAR Pelletier - Last Filed: 02/24/21 10:23> Assessment and Plan: eCrCl 52 - 48, Lasix for CHF, monitor renal function 02/21/2021 eCrCl improved to 1.02, continue to monitor d/t COVID regimen and MINNA 02/22/2021 Renal function stable, continue to monitor 02/23/2021 Near resolution 02/24/2021 BUN 31, Cr 0.93, eCrCl 58, eGFR 60 <SHANKAR Pelletier - Last Filed: 02/24/21 10:23> (5) Dyspnea: Onset Date: 05/19/15 <SHANKAR Pelletier - Last Filed: 02/24/21 10:23> Code(s): R06.00 - Dyspnea, unspecified <SHANKAR Pelletier - Last Filed: 02/24/21 10:23> Status: Acute <SHANKAR Pelletier - Last Filed: 02/24/21 10:23> Assessment and Plan: Monitoring A fib, cardiac monitoring, SpO2 monitoring, currently HFNC 50/60% SpO2 97% 02/21/2021 Improved, still unable to lay down for other diagnostic studies 02/22/2021 Pt does not
[2021-02-24] MEDS: ENOXAPARIN 100 MG/ML SYRINGE SUB-Q (09:58)
[2021-02-24] MEDS: TOLNAFTATE 1% POWDER 45 GM BTL 1 APPLIC TOPICAL ×2 (09:59→20:43)
[2021-02-24] MEDS: FUROSEMIDE INJ 40 MG/4 ML VIAL 20 MG IV PUSH (09:59)
[2021-02-24] MEDS: CLOPIDOGREL BISULFATE 75 MG TABLET PO (09:59)
[2021-02-24] MEDS: UMECLIDINIUM/VILANTEROL 62.5-25 MCG ELLIPTA 1 PUFF INHALATION (10:00)
[2021-02-24] MEDS: ACETAMINOPHEN 325 MG TABLET 650 MG PO (16:09)
[2021-02-24] MEDS: APIXABAN 2.5 MG TABLET 5 MG PO (20:43)
[2021-02-25] VITALS (7 sets, daily range): BP systolic 135–155; BP diastolic 50–64; PULSE 48–84; RESP 17–20; TEMP 35.8–36.5; O2SAT 94–98
--- NOTE | 2021-02-25 02:25 | PC.NURSE ---
Pt rounding completed. Pt is sleeping with the TV on and the HOB elevated. Call light is within reach.
--- NOTE | 2021-02-25 04:57 | PC.NURSE ---
Pt stated that her teeth feel hard and this is the first time they felt this way according to her. Upon inspection the lower incisors show gum deterioration and gingivitis. The pt pushed on these teeth with her tongue and the teeth moved forward as if wanting to come out. Omayra then stated she was actively trying to get the tooth to fall out and this journalists and other writers encouraged better oral health and seeing a dentist to safely remove the tooth. 550 ml of fresh ice water brought to pt and pt has call light within reach.
[2021-02-25] MEDS: ALBUTEROL SULFATE (*SP) INHALER 4 PUFF INHALATION ×4 (06:30→20:26)
[2021-02-25 06:41] LABS: Hematocrit 41.5 % (35.0-42.0); Hemoglobin 12.6 g/dL (11.7-13.8); Mean Corpuscular HGB Conc 30.4 g/dL (32.0-36.0); Mean Corpuscular Hemoglobin 29.4 pg (27.0-31.0); Mean Corpuscular Volume 96.7 fL (78.0-102.0); Mean Platelet Volume 11.6 fl (9.2-11.8); Platelet Count Result 174 K/mm3 (150-420); Red Blood Count 4.29 M/mm3 (4.20-5.40); Red Cell Distribution Width 13.1 % (11.6-14.4); White Blood Count 6.5 K/mm3 (4.8-10.8)
[2021-02-25 06:56] LABS: Alanine Aminotransferase 57 U/L (14-59); Albumin Level 2.7 g/dL (3.4-5.0); Alkaline Phosphatase 54 U/L (46-116); Anion Gap -2 mmol/L (8-16); Aspartate Amino Transferase 41 U/L (15-37); Bilirubin,Total 0.5 mg/dL (0.00-1.00); Blood Urea Nitrogen 28 mg/dL (7-18); Calcium 8.3 mg/dL (8.5-10.1); Carbon Dioxide 44 mmol/L (21-32); Chloride 99 mmol/L (98-108); Estimated CRCL calculation 60 ml/min; Estimated Glomerular Filt Rate > 60; Glucose 166 mg/dL (70-99); Osmolality Calculated 301 mOsm/kg (285-295); Potassium 4.4 mmol/L (3.5-5.1); Sodium 141 mmol/L (136-145); Total Protein 5.9 g/dL (6.4-8.2)
[2021-02-25] MEDS: FUROSEMIDE INJ 40 MG/4 ML VIAL 20 MG IV PUSH (09:02)
[2021-02-25] MEDS: CLOPIDOGREL BISULFATE 75 MG TABLET PO (09:02)
[2021-02-25] MEDS: APIXABAN 2.5 MG TABLET 5 MG PO ×2 (09:02→20:27)
[2021-02-25] MEDS: UMECLIDINIUM/VILANTEROL 62.5-25 MCG ELLIPTA 1 PUFF INHALATION (09:03)
[2021-02-25] MEDS: TOLNAFTATE 1% POWDER 45 GM BTL 1 APPLIC TOPICAL ×2 (09:03→16:48)
[2021-02-25] MEDS: ACETAMINOPHEN 325 MG TABLET 650 MG PO (16:48)
[2021-02-25 17:04] LABS: Base Excess ABG 16.2 mmol/L (0-2); HCO3 ABG 42.3 mmol/L (23-29); Oxygen Content ABG 18.4 %vol (16.0-22.0); Oxygen Saturation ABG 97.2 % (95-97); Oxyhemoglobin 96.9 % (94-100); PCO2 ABG 56.8 mmHg (35-45); PO2 ABG 99.4 mmHg (75-85); Total Hemoglobin 13.4 g/dL (12.0-18.0); pH ABG 7.49 (7.35-7.45)
--- NOTE | 2021-02-25 17:06 | PM.IMPN ---
Progress Note: A&P Assessment and Plan (1) COVID-19: Code(s): U07.1 - COVID-19 Status: Acute Assessment and Plan: Remdesivir, Decadron, Lovenox, Albuterol, Supplemental Oxygen with HFNC 50/60% with SpO2 @ 97%,Rocephin, Pt states she is allergic to Azithromycin, Post intervention ABG: pH 7.45, pCO2 64.2, pO2 102.8, HCO3 43.3, O2 Sat 97.3; PT/INR 11.4/1.1, BUN 29, Cr 1.13, eCrCl 48, AST/ALT 57/66 02/21/2021 Lung sounds slight improved, no rales but diminished on the left posteriorly, continue with above regimen, pCO2 increased with a slight decreased in pO2, settings on HFNC changed, see RT/RN report, PT/INR 01/31.1, BUN 31, Cr 1.02, eCrCl 53, AST/ALT 133/51 02/22/2021 Labs stable, breathing improved, weaning HFNC, Last ABG from 02/21/21: pH 7.44, pCO2 53.4, pO2 69.7, HCO3 35.6, O2 Sat 93.6 02/23/2021 Last dose of Remdesivir should be tomorrow, continue current therapies, weaning O2 02/24/2021 currently HFNC 50/47%, continue interventions 02/25/2021 HFNC 40/46% with SpO2 at 96%, obtaining ABG 7.49, CO2 56.8, O2 99.4, HCO3 42.3, O2 Sat 97.2 likely her baseline, last Remdesivir yesterday, continue with Decadron (2) CHF (congestive heart failure): Onset Date: 05/23/15 Code(s): I50.9 - Heart failure, unspecified Status: Acute Assessment and Plan: BNP 2735, Lasix 40 mg in ER with 20 mg BID currently, monitoring I&O, supplemental Oxygen as noted above, monitor BNP and SpO2 02/21/2021 BNP increased to 4700, continue with Lasix, renal function improved, Pt states breathing improved 02/22/2021 BNP 3549, no rales, breathing improved, weaning HFNC, continue as above 02/23/2021 BNP continues to trend down, lungs improved 02/24/2021 no rales still with peripheral edema no chest pain no complaints regarding breathing 02/25/2021 no adventitious lung sounds, improved sound slightly, still quite diminished (3) Atrial fibrillation with rapid ventricular response: Code(s): I48.91 - Unspecified atrial fibrillation Status: Acute Assessment and Plan: Cardizem drip at 7.5 mg/hr, will convert to Cardizem CD 240 mg PO Daily, Currently Lovenox, continue to monitor, no CP 02/21/2021 Pt unable to lay down for Echocardiogram nor for CTA of the chest for PE, D-Dimer was 1.36 on 02/19/2021, rate controlled with Cardizem 02/22/2021 Will continue with Therapeutic Lovenox for potential PE (unable to get studies as Pt is unable to lay supine d/t SOB) 02/23/2021 Rate well controlled with Cardizem CD 240mg. 02/24/2021 Start Eliquis 5 mg BID 02/25/2021 NSR on Telemetry (4) Acute kidney injury: Code(s): N17.9 - Acute kidney failure, unspecified Status: Acute Assessment and Plan: eCrCl 52 - 48, Lasix for CHF, monitor renal function 02/21/2021 eCrCl improved to 1.02, continue to monitor d/t COVID regimen and MINNA 02/22/2021 Renal function stable, continue to monitor 02/23/2021 Near resolution 02/24/2021 BUN 31, Cr 0.93, eCrCl 58, eGFR 60 02/25/2021 28, 0.9, 60, > 60 resolved (5) Dyspnea: Onset Date: 05/19/15 Code(s): R06.00 - Dyspnea, unspecified Status: Acute Assessment and Plan: Monitoring A fib, cardiac monitoring, SpO2 monitoring, currently HFNC 50/60% SpO2 97% 02/21/2021 Improved, still unable to lay down for other diagnostic studies 02/22/2021 Pt does not lay supine at home d/t SOB, breathing improved and weaning O2 02/23/2021 Improved 02/24/2021 doing well still requires HFNC attempting to wean to home O2 settings or at least to point she can use her home oxygen but at a L/min flow capable of her concentrator 02/25/2021 ABG likely showing her baseline at this time, continue to wean O2, still recovering from COVID (6) COPD (chronic obstructive pulmonary disease): Qualifiers: COPD type: emphysema Emphysema type: unspecified Qualified Code(s): J43.9 - Emphysema, unspecified Code(s): J44.9 - Chronic obstructive pulmonary disease, unspe
[2021-02-25 17:10] LABS: Device NASAL CANNULA; Modified Allen's Test Pass; Site Drawn RIGHT RADIAL
--- NOTE | 2021-02-25 19:20 | PC.NURSE ---
Completed change of shift report with day shift nurse. Patient is sitting comfortably in a recliner. She no longer has a harry, and stated the removal of the harry reduced her pain levels. Patient asked for the commode, and then went back to the chair to continue to watch TV. She is not ready to move to the bed at this time.
--- NOTE | 2021-02-25 22:10 | PC.NURSE ---
Completed patient rounding. Patient is still sitting in the chair. She asked to use the commode, and then returned to the chair as she was not ready to go to bed. Patient did not need anything else at this time.
[2021-02-26] VITALS (14 sets, daily range): BP systolic 135–157; BP diastolic 43–74; PULSE 55–115; RESP 14–20; TEMP 35.8–36.7; O2SAT 85–99
--- NOTE | 2021-02-26 02:00 | PC.NURSE ---
Patient is sleeping comfortably in bed, with no signs of pain or discomfort.
[2021-02-26 05:36] LABS: Hematocrit 39.5 % (35.0-42.0); Hemoglobin 12.2 g/dL (11.7-13.8); Mean Corpuscular HGB Conc 30.9 g/dL (32.0-36.0); Mean Corpuscular Hemoglobin 29.5 pg (27.0-31.0); Mean Corpuscular Volume 95.6 fL (78.0-102.0); Mean Platelet Volume 11.5 fl (9.2-11.8); Platelet Count Result 191 K/mm3 (150-420); Red Blood Count 4.13 M/mm3 (4.20-5.40); White Blood Count 7.3 K/mm3 (4.8-10.8)
[2021-02-26 06:00] LABS: Alanine Aminotransferase 56 U/L (14-59); Albumin Level 2.8 g/dL (3.4-5.0); Alkaline Phosphatase 50 U/L (46-116); Anion Gap -1 mmol/L (8-16); Aspartate Amino Transferase 29 U/L (15-37); Bilirubin,Total 0.5 mg/dL (0.00-1.00); Blood Urea Nitrogen 28 mg/dL (7-18); Calcium 8.6 mg/dL (8.5-10.1); Carbon Dioxide 42 mmol/L (21-32); Chloride 100 mmol/L (98-108); Estimated CRCL calculation 68 ml/min; Estimated Glomerular Filt Rate > 60; Glucose 180 mg/dL (70-99); Osmolality Calculated 302 mOsm/kg (285-295); Potassium 4.4 mmol/L (3.5-5.1); Sodium 141 mmol/L (136-145); Total Protein 5.9 g/dL (6.4-8.2)
[2021-02-26 06:05] LABS: Band Neutrophils Percent 0 % (0-6); Lymphocytes Absolute Manual 0.65 K/mm3 (1.1-4.5); Lymphocytes Percent Manual 9 % (18-44); Monocytes Absolute Manual 0.14 K/mm3 (0.1-0.90); Monocytes Percent Manual 2 % (3-9); Neutrophils Absolute Manual 6.49 K/mm3 (1.7-7.2); Neutrophils Percent Manual 89 % (46-73); Total Cells Counted 100
[2021-02-26 06:06] LABS: Platelet Estimate Adequate (Adequate)
[2021-02-26] MEDS: ALBUTEROL SULFATE (*SP) INHALER 4 PUFF INHALATION ×4 (06:23→21:04)
[2021-02-26] MEDS: TOLNAFTATE 1% POWDER 45 GM BTL 1 APPLIC TOPICAL ×2 (09:00→17:13)
[2021-02-26] MEDS: CLOPIDOGREL BISULFATE 75 MG TABLET PO (09:49)
[2021-02-26] MEDS: APIXABAN 2.5 MG TABLET 5 MG PO ×2 (09:49→21:04)
[2021-02-26] MEDS: FUROSEMIDE INJ 40 MG/4 ML VIAL 20 MG IV PUSH (09:50)
[2021-02-26] MEDS: UMECLIDINIUM BROMIDE 62.5 MCG ELLIPTA 1 PUFF INHALATION (11:25)
[2021-02-26] MEDS: guaiFENesin/DEXTROMETHORPHAN 5 ML UDC 10 ML PO ×2 (12:35→17:03)
--- NOTE | 2021-02-26 13:49 | PM.IMPN ---
Progress Note: A&P Assessment and Plan (1) COVID-19: Code(s): U07.1 - COVID-19 <SHANKAR Pelletier - Last Filed: 02/26/21 14:15> Status: Acute <SHANKAR Pelletier - Last Filed: 02/26/21 14:15> Assessment and Plan: Remdesivir, Decadron, Lovenox, Albuterol, Supplemental Oxygen with HFNC 50/60% with SpO2 @ 97%,Lesliehin, Pt states she is allergic to Azithromycin, Post intervention ABG: pH 7.45, pCO2 64.2, pO2 102.8, HCO3 43.3, O2 Sat 97.3; PT/INR 11.4/1.1, BUN 29, Cr 1.13, eCrCl 48, AST/ALT 57/66 02/21/2021 Lung sounds slight improved, no rales but diminished on the left posteriorly, continue with above regimen, pCO2 increased with a slight decreased in pO2, settings on HFNC changed, see RT/RN report, PT/INR 12/1.1, BUN 31, Cr 1.02, eCrCl 53, AST/ALT 133/51 02/22/2021 Labs stable, breathing improved, weaning HFNC, Last ABG from 02/21/21: pH 7.44, pCO2 53.4, pO2 69.7, HCO3 35.6, O2 Sat 93.6 02/23/2021 Last dose of Remdesivir should be tomorrow, continue current therapies, weaning O2 02/24/2021 currently HFNC 50/47%, continue interventions 02/25/2021 HFNC 40/46% with SpO2 at 96%, obtaining ABG 7.49, CO2 56.8, O2 99.4, HCO3 42.3, O2 Sat 97.2 likely her baseline, last Remdesivir yesterday, continue with Decadron 02/26/2021 RT reports that the Pt did not require more than 1 L/min while walking 60 feet and still maintaining SpO2 > 90%. Telemetry shows 88% with 1 L/min at rest, Requested Pt be placed back on her home setting of 2.5 L/min which she was having SpO2 of > 90%. As noted previously Pt lives a very sedentary lifestyle at home. <RIC PelletierN-C - Last Filed: 02/26/21 14:15> (2) CHF (congestive heart failure): Onset Date: 05/23/15 <Ashok SolSHANKAR langford - Last Filed: 02/26/21 14:15> Code(s): I50.9 - Heart failure, unspecified <Ashok SolSHANKAR langford - Last Filed: 02/26/21 14:15> Status: Acute <Ashok SolSHANKAR langford - Last Filed: 02/26/21 14:15> Assessment and Plan: BNP 2735, Lasix 40 mg in ER with 20 mg BID currently, monitoring I&O, supplemental Oxygen as noted above, monitor BNP and SpO2 02/21/2021 BNP increased to 4700, continue with Lasix, renal function improved, Pt states breathing improved 02/22/2021 BNP 3549, no rales, breathing improved, weaning HFNC, continue as above 02/23/2021 BNP continues to trend down, lungs improved 02/24/2021 no rales still with peripheral edema no chest pain no complaints regarding breathing 02/25/2021 no adventitious lung sounds, improved sound slightly, still quite diminished 02/26/2021 Slight wheezing, less diminished than previously <Ashok SolSHANKAR langford - Last Filed: 02/26/21 14:15> (3) Atrial fibrillation with rapid ventricular response: Code(s): I48.91 - Unspecified atrial fibrillation <Ashok Reardon SHANKAR Duff - Last Filed: 02/26/21 14:15> Status: Acute <Ashok Reardon SHANKAR Duff - Last Filed: 02/26/21 14:15> Assessment and Plan: Cardizem drip at 7.5 mg/hr, will convert to Cardizem CD 240 mg PO Daily, Currently Lovenox, continue to monitor, no CP 02/21/2021 Pt unable to lay down for Echocardiogram nor for CTA of the chest for PE, D-Dimer was 1.36 on 02/19/2021, rate controlled with Cardizem 02/22/2021 Will continue with Therapeutic Lovenox for potential PE (unable to get studies as Pt is unable to lay supine d/t SOB) 02/23/2021 Rate well controlled with Cardizem CD 240mg. 02/24/2021 Start Eliquis 5 mg BID 02/25/2021 NSR on Telemetry 02/26/2021 ... <SHANKAR Pelletier - Last Filed: 02/26/21 14:15> (4) Acute kidney injury: Code(s): N17.9 - Acute kidney failure, unspecified <SHANKAR Pelletier - Last Filed: 02/26/21 14:15> Status: Acute <SHANKAR Pelletier - Last Filed: 02/26/21 14:15> Assessment and Plan: eCrCl 52 - 48, Lasix for CHF, monitor renal function 02/21/2021 eCrCl improved to 1.02, continue to monitor d/t COVID regimen and MINNA
--- NOTE | 2021-02-26 14:20 | HOMEO2EVAL ---
Evaluation was performed at [facility] Home Oxygen Evaluation RC: Home Oxygen (O2) Evaluation Start: 02/26/21 11:21 Freq: ONCE Status: Active Protocol: RPE Activity Type Activity Date Activity User E-Sign Co-Sign Detail Recorded Client Recorded Date Recorded By Document 02/26/21 13:45 YULISSA [id number] 02/26/21 14:20 YULISSA Document 02/26/21 13:46 YULISSA [id number] 02/26/21 14:20 YULISSA Document 02/26/21 13:56 YULISSA [id number] 02/26/21 14:20 YULISSA 02/26/21 02/26/21 02/26/21 13:45 13:46 13:56 Home O2 Evaluation Test Phase Resting Resting Exercise Oxygen Delivery Room Air Nasal Cannula Nasal Cannula Oxygen Flow Rate (L/min) 1 1 Pulse Oximetry (90-100 %) 85 L 95 95 Pulse Rate (60-100 beats/min) 108 H 96 115 H Activity Tolerance Poor Poor Rating of Perceived Dyspnea (PD) +3 Moderate +3 Moderate Difficulty, But Difficulty, But Can Continue Can Continue Rate of Perceived Exertion (PE) 15 Hard 20 Ambulation Distance (feet) 60 Home Oxygen Evaluation Comments will add oxygen sitting on patient walked at 1 lpm commode. will pushing w/c on start walk on 1 oxygen at 1 lpm lpm . maintained Spo2 >92% Treatment Charges O2 Evaluation - Inpatient
[2021-02-27] VITALS: BP 158/45; PULSE 75; RESP 18; TEMP 36.1; O2SAT 96
[2021-02-27 03:51] VITALS: PULSE 76
[2021-02-27 04:00] VITALS: BP 151/48; PULSE 81; RESP 22; TEMP 35.9; O2SAT 94
[2021-02-27 05:31] LABS: Hematocrit 37.6 % (35.0-42.0); Mean Corpuscular HGB Conc 31.9 g/dL (32.0-36.0); Mean Corpuscular Hemoglobin 30.2 pg (27.0-31.0); Mean Corpuscular Volume 94.5 fL (78.0-102.0); Mean Platelet Volume 11.3 fl (9.2-11.8); Platelet Count Result 232 K/mm3 (150-420); Red Blood Count 3.98 M/mm3 (4.20-5.40); White Blood Count 9.8 K/mm3 (4.8-10.8)
[2021-02-27 05:41] LABS: Anion Gap -1 mmol/L (8-16); Blood Urea Nitrogen 25 mg/dL (7-18); Calcium 8.5 mg/dL (8.5-10.1); Carbon Dioxide 41 mmol/L (21-32); Chloride 101 mmol/L (98-108); Estimated CRCL calculation 64 ml/min; Estimated Glomerular Filt Rate > 60; Glucose 156 mg/dL (70-99); Osmolality Calculated 299 mOsm/kg (285-295); Potassium 4.4 mmol/L (3.5-5.1); Sodium 141 mmol/L (136-145)
[2021-02-27] MEDS: ALBUTEROL SULFATE (*SP) INHALER 4 PUFF INHALATION ×2 (05:53→10:30)
[2021-02-27 08:00] VITALS: BP 146/61; PULSE 80; PULSE 87; RESP 16; TEMP 35.8; O2SAT 96
[2021-02-27] MEDS: UMECLIDINIUM BROMIDE 62.5 MCG ELLIPTA 1 PUFF INHALATION (09:00)
[2021-02-27] MEDS: FUROSEMIDE INJ 40 MG/4 ML VIAL 20 MG IV PUSH (09:40)
[2021-02-27] MEDS: APIXABAN 2.5 MG TABLET 5 MG PO (09:40)
[2021-02-27] MEDS: guaiFENesin/DEXTROMETHORPHAN 5 ML UDC 10 ML PO (09:41)
[2021-02-27] MEDS: TOLNAFTATE 1% POWDER 45 GM BTL 1 APPLIC TOPICAL (09:43)
[2021-02-27] MEDS: CLOPIDOGREL BISULFATE 75 MG TABLET PO (09:43)
--- NOTE | 2021-02-27 11:52 | PM.DS ---
DS: Admitting Diagnosis Discharge Date 02/27/2021 Admitting Diagnosis New onset A. fib with RVR, Covid uncompensated heart failure, acute kidney injury, COPD exacerbation DS: Discharge Diagnosis Discharge Diagnosis (1) COVID-19: Code(s): U07.1 - COVID-19 Status: Acute Assessment and Plan: Remdesivir, Decadron, Lovenox, Albuterol, Supplemental Oxygen with HFNC 50/60% with SpO2 @ 97%,Rocephin, Pt states she is allergic to Azithromycin, Post intervention ABG: pH 7.45, pCO2 64.2, pO2 102.8, HCO3 43.3, O2 Sat 97.3; PT/INR 11.4/1.1, BUN 29, Cr 1.13, eCrCl 48, AST/ALT 57/66 02/21/2021 Lung sounds slight improved, no rales but diminished on the left posteriorly, continue with above regimen, pCO2 increased with a slight decreased in pO2, settings on HFNC changed, see RT/RN report, PT/INR 12.1, BUN 31, Cr 1.02, eCrCl 53, AST/ALT 133/51 02/22/2021 Labs stable, breathing improved, weaning HFNC, Last ABG from 02/21/21: pH 7.44, pCO2 53.4, pO2 69.7, HCO3 35.6, O2 Sat 93.6 02/23/2021 Last dose of Remdesivir should be tomorrow, continue current therapies, weaning O2 02/24/2021 currently HFNC 50/47%, continue interventions 02/25/2021 HFNC 40/46% with SpO2 at 96%, obtaining ABG 7.49, CO2 56.8, O2 99.4, HCO3 42.3, O2 Sat 97.2 likely her baseline, last Remdesivir yesterday, continue with Decadron 02/26/2021 RT reports that the Pt did not require more than 1 L/min while walking 60 feet and still maintaining SpO2 > 90%. Telemetry shows 88% with 1 L/min at rest, Requested Pt be placed back on her home setting of 2.5 L/min which she was having SpO2 of > 90%. As noted previously Pt lives a very sedentary lifestyle at home. Patient will discharge home with 2 L nasal cannula she will also complete 3 more days of dexamethasone and complete complete a Z-Jose Luis for Covid pneumonia (2) CHF (congestive heart failure): Onset Date: 05/23/15 Code(s): I50.9 - Heart failure, unspecified Status: Acute Assessment and Plan: BNP 2735, Lasix 40 mg in ER with 20 mg BID currently, monitoring I&O, supplemental Oxygen as noted above, monitor BNP and SpO2 02/21/2021 BNP increased to 4700, continue with Lasix, renal function improved, Pt states breathing improved 02/22/2021 BNP 3549, no rales, breathing improved, weaning HFNC, continue as above 02/23/2021 BNP continues to trend down, lungs improved 02/24/2021 no rales still with peripheral edema no chest pain no complaints regarding breathing 02/25/2021 no adventitious lung sounds, improved sound slightly, still quite diminished 02/26/2021 Slight wheezing, less diminished than previously Patient will continue Lasix 40 mg twice daily and follow-up with her primary care physician (3) Atrial fibrillation with rapid ventricular response: Code(s): I48.91 - Unspecified atrial fibrillation Status: Acute Assessment and Plan: Cardizem drip at 7.5 mg/hr, will convert to Cardizem CD 240 mg PO Daily, Currently Lovenox, continue to monitor, no CP 02/21/2021 Pt unable to lay down for Echocardiogram nor for CTA of the chest for PE, D-Dimer was 1.36 on 02/19/2021, rate controlled with Cardizem 02/22/2021 Will continue with Therapeutic Lovenox for potential PE (unable to get studies as Pt is unable to lay supine d/t SOB) 02/23/2021 Rate well controlled with Cardizem CD 240mg. 02/24/2021 Start Eliquis 5 mg BID 02/25/2021 NSR on Telemetry 02/26/2021 ... Patient will discharge with Eliquis and Cardizem and follow-up with her primary care physician patient currently sinus rhythm (4) Acute kidney injury: Code(s): N17.9 - Acute kidney failure, unspecified Status: Acute Assessment and Plan: eCrCl 52 - 48, Lasix for CHF, monitor renal function 02/21/2021 eCrCl improved to 1.02, continue to monitor d/t COVID regimen and MINNA 02/22/2021 Renal function stable, continue to monitor 02/23/2021 Near resolution 02/24/2021 BUN 31, Cr 0.93, eCrCl 58, eGFR 60 02/25/2021 28, 0.9, 60,
[2021-02-27 12:00] VITALS: BP 135/60; PULSE 82; RESP 14; TEMP 35.9; O2SAT 96
[2021-02-27 14:00] VITALS: O2SAT 96
--- NOTE | 2021-02-27 14:15 | PC.NURSE ---
PT discharged home with VSS. O2 @ 2.5 liters / NC. O2 sat is 97%. Medication instructions given. Pt verbalizes understanding of all discharge instructions and isolation instructions. Pt will have home health from [facility].
== END 2021-02-27 14:00 | disposition home health service (06) | DRG 178 ==
LOC: CHSED 17:05 → CHS2ND 19:39
PROVIDERS: Nurse Practitioner Family; Admitting Provider Emergency Medicine; Emergency Provider Emergency Medicine; PCP Nurse Practitioner Family; Visit Provider Emergency Medicine
DX: U07.1 COVID-19 (principal); J44.9 Chronic obstructive pulmonary disease, unspecified; I50.9 Heart failure, unspecified; F17.210 Nicotine dependence, cigarettes, uncomplicated; N17.9 Acute kidney failure, unspecified; I11.0 Hypertensive heart disease with heart failure; I48.91 Unspecified atrial fibrillation; R77.8 Other specified abnormalities of plasma proteins; Z99.81 Dependence on supplemental oxygen
CPT/HCPCS: 36415; 36600; 71045; 80048; 80053; 82805; 83605; 83735; 83880; 84484; 85025; 85027; 85055; 85380; 85610; 85730; 87040; 87502; 93005; 94618; 97161; 99285; A9270; C9803; J0696; J1100; J1650; J1940; J2405; U0003; U0005

== ENCOUNTER 2021-03-14 19:30 | Inpatient (IN) | payer MEDICARE, SELFPAY ==
[2021-03-14] VITALS (8 sets, daily range): BP systolic 145–161; BP diastolic 50–107; PULSE 105–137; RESP 20–26; TEMP 36.7; O2SAT 88–95
--- NOTE | ~2021-03-14 | CT_ITS ---
EXAMINATION: CTA chest PE protocol DATE: 03/14/2021 22:21 INDICATION: Shortness of breath, COVID 19 TECHNIQUE: Computed tomography angiography (CTA) of the chest was performed with 100 mL Omnipaque-350 intravenous contrast timed to evaluate the pulmonary arteries. Coronal maximum intensity projection 3D-reconstructions were created by the technologist. The dose-length product (DLP) was 1135.24 mGy-cm . Automated exposure control and iterative reconstruction technique were employed. COMPARISON: None. FINDINGS: The pulmonary arteries are well-opacified. Respiratory motion artifact limits evaluation. N o pulmonary embolus is identified. There is a 6.5 x 6.3 cm fusiform aneurysm of the ascending thoraci c aorta.. There is atelectasis of the lingula. No aortic dissection is identified. There is emphysema . The there are airspace opacities with an upper lobe predominance. Cardiomegaly is noted. There is m oderate thoracic spondylosis. IMPRESSION: 1. No pulmonary embolus identified, sensitivity limited by respiratory motion artifact. 2. Airspace opacities with an upper lobe predominance, consistent with pneumonia. 3. Fusiform aneurysm of the ascending aorta measuring up to 6.5 cm. Nonemergent vascular surgical fol low-up is recommended. 4. Cardiomegaly. Reviewed, dictated and finalized at location [facility] IMPRESSION: 1. No pulmonary embolus identified, sensitivity limited by respiratory motion a rtifact. 2. Airspace opacities with an upper lobe predominance, consistent with pneumoni a. 3. Fusiform aneurysm of the ascending aorta measuring up to 6.5 cm. Nonemergent vascular surgical follow-up is recommended. 4. Cardiomegaly.
--- NOTE | 2021-03-14 19:43 | ECG_ITS ---
Measurements Intervals [place] Rate: 106 P: AL: 0 QRS: 62 QRSD: 98 T: 90 QT: 352 QTc: 469 Interpretive Statements ATRIAL FIBRILLATION WITH RAPID VENTRICULAR RESPONSE BORDERLINE R WAVE PROGRESSION, ANTERIOR LEADS BORDERLINE T WAVE ABNORMALITY- HIGH LATERAL LEADS BASELINE ARTIFACT- I, II, III, AVR, AVL, AVF, V1-V6 ABNORMAL ECG Electronically Signed On 03-15-2021 6:08:21 RENAL CASE MANAGER by Prasanna Joseph D.O.
--- NOTE | 2021-03-14 19:47 | ED.SOB ---
HPI - SOB/Dyspnea General Chief Complaint: Shortness of Breath/Dyspnea Stated Complaint: AMB Source: patient, EMS and RN notes reviewed Mode of arrival: EMS Limitations: no limitations History of Present Illness HPI Narrative: Patient recently admitted here for COVID on February 19. She was in the hospital for 11 days was found to have atrial fibrillation with RVR. She was treated and discharged on diltiazem. EMS noted that when she called due to being short of breath that she has over 50 ft of nasal cannula tubing and that it is probably not delivering a full 2 L by nasal cannula. MD elicited complaint: shortness of breath Pertinent past history: COPD and congestive heart failure Onset (ago): hour(s) (12) Context: occurred during exertion Timing: constant Severity: moderate Exacerbating factors: exertion Relieving factors: oxygen Known history of: COPD and congestive heart failure Associated symptoms: denies other symptoms Treatment prior to arrival: oxygen Related Data Home oxygen amount: 2 liters Allergies Allergy/AdvReac Type Severity Reaction Status Date / Time ciprofloxacin [Cipro] Allergy Intermediate Unknown Verified 03/14/21 20:21 clindamycin Allergy Intermediate Unknown Verified 03/14/21 20:21 lisinopril Allergy Intermediate Unknown Verified 03/14/21 20:21 losartan Allergy Intermediate Unknown Verified 03/14/21 20:21 meloxicam Allergy Intermediate Unknown Verified 03/14/21 20:21 meperidine [Demerol] Allergy Intermediate Unknown Verified 03/14/21 20:21 metoprolol Allergy Intermediate Hives Verified 03/14/21 20:21 Penicillins Allergy Intermediate Unknown Verified 03/14/21 20:21 sulfamethoxazole [Bactrim] Allergy Intermediate Unknown Verified 03/14/21 20:21 trimethoprim [Bactrim] Allergy Intermediate Unknown Verified 03/14/21 20:21 prednisone Allergy Unknown Rash Verified 03/17/21 15:02 methylprednisolone Allergy Swelling Verified 03/14/21 20:21 Review of Systems Review of Systems: All systems reviewed & are unremarkable except as noted in HPI and below Constitutional: Constitutional: Denies chills and Denies fever(s) Cardiovascular: Cardiovascular: Denies chest pain Respiratory: Respiratory: Reports as per HPI and Denies cough Gastrointestinal: Gastrointestinal: Denies nausea and Denies vomiting PMFSH Past Medical History Medical History Acute upper respiratory infection (02/14/15) CHF (congestive heart failure) (05/23/15) Chronic cough (12/16/14) Cigarette smoker (01/28/17) COPD (chronic obstructive pulmonary disease) Fatigue (12/24/16) Hip pain (06/27/15) HTN (hypertension) (12/27/14) Rash (12/18/16) Surgical History Surgical History History of hysterectomy Social History Social History Smoking packs per day: 1 Smoking cigarettes per day: 20.0 Years smoked: 31 Smoking pack-years: 31.00 Smoking status: Former smoker Tobacco type: cigarettes Second hand tobacco smoke exposure: Yes Smoking end date: 02/17/21 Alcohol intake: never Substance use: never Substance use type: does not use Spiritual care concerns: No Exam Const: General: cooperative, acute distress mild and respiratory, anxious and ill appearing acutely Nutritional Appearance: obese morbidly obese Orientation/consciousness: patient oriented x3 Limitations: no limitations HENMT: Head: normal to inspection Ears: external ears normal Mouth: Yes moist mucous membranes Eyes: Conjunctivae: conjunctivae normal Pupils: Equal, round and reactive pupils present EOM: EOMs intact bilaterally Neck: Neck: normal visual inspection Resp: Effort & Inspection: able to speak in complete sentences Auscultation: clear to auscultation bilaterally and diminished lung sounds diffuse (short air exchange) Cardio: Rate: tachycardic Rhythm: abnormal rhythm irregularly irre
[2021-03-14 20:03] LABS: Basophils Absolute Auto 0.04 K/mm3 (0.00-0.10); Basophils Percent Auto 0.6 % (0.0-1.0); Eosinophils Absolute Auto 0.44 K/mm3 (0.02-0.50); Eosinophils Percent Auto 6.3 % (1.0-6.0); Hematocrit 35.7 % (35.0-42.0); Hemoglobin 10.9 g/dL (11.7-13.8); Immature Granulocyte Absolute 0.04 K/mm3 (0.00-0.00); Immature Granulocyte Percent A 0.6 % (0.0-0.0); Lymphocytes Absolute Auto 1.43 K/mm3 (1.10-4.50); Lymphocytes Percent Auto 20.3 % (18.0-42.0); Mean Corpuscular HGB Conc 30.5 g/dL (32.0-36.0); Mean Corpuscular Hemoglobin 30.4 pg (27.0-31.0); Mean Corpuscular Volume 99.4 fL (78.0-102.0); Mean Platelet Volume 9.6 fl (9.2-11.8); Monocytes Absolute Auto 0.53 K/mm3 (0.10-0.90); Monocytes Percent Auto 7.5 % (2.0-11.0); Neutrophils Absolute Auto 4.6 K/mm3 (1.7-7.2); Neutrophils Percent Auto 64.7 % (50.0-70.0); Platelet Count Result 262 K/mm3 (150-420); Red Blood Count 3.59 M/mm3 (4.20-5.40); Red Cell Distribution Width 15.1 % (11.6-14.4)
[2021-03-14] MEDS: LABETALOL HCL INJ 100 MG/20 ML VIAL IV PUSH (20:09)
[2021-03-14 20:26] LABS: D Dimer 0.96 mg/L (0.19-0.50)
[2021-03-14 20:29] LABS: Alanine Aminotransferase 28 U/L (14-59); Albumin Level 2.8 g/dL (3.4-5.0); Alkaline Phosphatase 93 U/L (46-116); Anion Gap 5 mmol/L (8-16); Aspartate Amino Transferase 30 U/L (15-37); Bilirubin,Total 0.4 mg/dL (0.00-1.00); Blood Urea Nitrogen 19 mg/dL (7-18); Calcium 8.8 mg/dL (8.5-10.1); Carbon Dioxide 35 mmol/L (21-32); Chloride 99 mmol/L (98-108); Estimated Glomerular Filt Rate 50; Glucose 187 mg/dL (70-99); NT Pro B Type Natriuretic Pept 1925 pg/mL (0-125); Osmolality Calculated 295 mOsm/kg (285-295); Potassium 4.7 mmol/L (3.5-5.1); Sodium 139 mmol/L (136-145); Total Protein 7.2 g/dL (6.4-8.2); Troponin I 42.3 ng/L (0.00-60.4)
[2021-03-14 20:53] LABS: HCO3 ABG 34.5 mmol/L (23-29); Oxygen Content ABG 15.2 %vol (16.0-22.0); Oxyhemoglobin 92.3 % (94-100); PO2 ABG 72.2 mmHg (75-85); Total Hemoglobin 11.7 g/dL (12.0-18.0); pH ABG 7.25 (7.35-7.45)
[2021-03-14 20:55] LABS: Device NASAL CANNULA; Modified Allen's Test Pass; PCO2 ABG 81.5 mmHg (35-45); Site Drawn RIGHT RADIAL
--- NOTE | 2021-03-14 20:57 | PC.NURSE ---
Addendum entered by Prachi Rodriguez MLT, (ASC) 03/14/21 21:08: 81.5 Original Note: lab called high PCo2 81.9% LANDON Faust and Nurse Juanpablo advised.
[2021-03-14] MEDS: DIGOXIN INJ 250 MCG/ML 2 ML AMP (*BKC) IV PUSH (21:02)
[2021-03-14] MEDS: LORazepam INJ (*CRX) 2 MG/ML VIAL 1 MG IV PUSH (21:03)
[2021-03-14 23:05] LABS: HCO3 ABG 36.5 mmol/L (23-29); Oxygen Content ABG 15.8 %vol (16.0-22.0); Oxygen Saturation ABG 97.2 % (95-97); Oxyhemoglobin 96.8 % (94-100); PO2 ABG 132.5 mmHg (75-85); Total Hemoglobin 11.4 g/dL (12.0-18.0); pH ABG 7.16 (7.35-7.45)
[2021-03-14 23:08] LABS: Device BIPAP; Modified Allen's Test Pass; PCO2 ABG 103.7 mmHg (35-45); Site Drawn RIGHT RADIAL
[2021-03-15] VITALS (13 sets, daily range): BP systolic 132–149; BP diastolic 42–54; PULSE 18–110; RESP 14–97; TEMP 36.4–36.6; O2SAT 92–99
[2021-03-15 00:24] LABS: Base Excess ABG 9.1 mmol/L (0-2); HCO3 ABG 40.3 mmol/L (23-29); Oxygen Content ABG 15.1 %vol (16.0-22.0); Oxygen Saturation ABG 93.7 % (95-97); Oxyhemoglobin 93.1 % (94-100); PO2 ABG 83.5 mmHg (75-85); Total Hemoglobin 11.5 g/dL (12.0-18.0); pH ABG 7.21 (7.35-7.45)
[2021-03-15 00:26] LABS: Modified Allen's Test Pass; PCO2 ABG 103.5 mmHg (35-45); Site Drawn RIGHT RADIAL
[2021-03-15 00:27] LABS: Device BIPAP
[2021-03-15 01:30] LABS: HCO3 ABG 39.9 mmol/L (23-29); Oxygen Content ABG 15.5 %vol (16.0-22.0); Oxygen Saturation ABG 94.9 % (95-97); Oxyhemoglobin 94.5 % (94-100); Total Hemoglobin 11.6 g/dL (12.0-18.0); pH ABG 7.22 (7.35-7.45)
[2021-03-15 01:32] LABS: Device BIPAP; Modified Allen's Test Pass; PCO2 ABG 99.2 mmHg (35-45); Site Drawn RIGHT RADIAL
[2021-03-15] MEDS: LORazepam INJ (*CRX) 2 MG/ML VIAL 1 MG IV PUSH (02:59)
[2021-03-15 06:55] LABS: Base Excess ABG 9.7 mmol/L (0-2); HCO3 ABG 38.4 mmol/L (23-29); Oxygen Content ABG 14.6 %vol (16.0-22.0); Oxygen Saturation ABG 96.5 % (95-97); Oxyhemoglobin 96.1 % (94-100); PO2 ABG 100.2 mmHg (75-85); Total Hemoglobin 10.7 g/dL (12.0-18.0); pH ABG 7.31 (7.35-7.45)
--- NOTE | 2021-03-15 06:56 | PC.NURSE ---
PCO2 called over by [facility].8. LANDON jacome advised.
[2021-03-15 06:57] LABS: PCO2 ABG 78.7 mmHg (35-45)
[2021-03-15 07:01] LABS: Device BIPAP; Modified Allen's Test Pass; Site Drawn RIGHT RADIAL
[2021-03-15] MEDS: FUROSEMIDE INJ 40 MG/4 ML VIAL 60 MG IV PUSH (07:02)
--- NOTE | 2021-03-15 07:31 | PC.NURSE ---
nurse to nurse report completed rn Dang on second floor.
[2021-03-15] MEDS: LORazepam INJ (*CRX) 2 MG/ML VIAL 0.5 MG IV PUSH (08:00)
[2021-03-15] MEDS: dilTIAZem HCL CD 180 MG CAP.ER.24H 360 MG PO (09:28)
[2021-03-15] MEDS: FUROSEMIDE 40 MG TABLET PO ×2 (09:29→17:54)
[2021-03-15] MEDS: APIXABAN 2.5 MG TABLET 5 MG PO ×2 (09:29→21:30)
--- NOTE | 2021-03-15 10:23 | PM.IMHP ---
H&P: HPI History of Present Illness Date/Time: 03/15/21 10:23 this is a 70-year-old female who presented to our emergency department with complaints of shortness of breath and dyspnea. According to patient she started to experience increased shortness of breath yesterday. Patient notes that she did use her nebulizer with no relief. Patient was also recently diagnosed with COVID February 19 when she was released she was released with 3 days of dexamethasone. While in the ED patient was found to be in A. fib with RVR she was given labetalol 5 mg IV . Her home medication is carvedilol 240 mg daily. WBCs 7.0, hemoglobin 10.9, hematocrit 35.7, platelets 262, blood gas pH 7.16, CO2 103.7, O2 132.5, bicarb 36.5, sodium 139, potassium 4.7, BUN 19, creatinine 1.09, BUN 1925, D-dimer 0.96, chest x-ray indicate pneumonia. While in the ED patient was placed on BiPAP repeat blood gas Information only to be given to Chief Complaint: Shortness of breath Review of Systems Review of Systems: A 14 organ system Review of Systems was performed and pertinent positives included in the HPI, otherwise remaining ROS is negative. [facility] Past Medical History Medical History Acute upper respiratory infection (02/14/15) CHF (congestive heart failure) (05/23/15) Chronic cough (12/16/14) Cigarette smoker (01/28/17) COPD (chronic obstructive pulmonary disease) Fatigue (12/24/16) Hip pain (06/27/15) HTN (hypertension) (12/27/14) Rash (12/18/16) Surgical History Surgical History History of hysterectomy Social History Social History Smoking packs per day: 1 Smoking cigarettes per day: 20.0 Years smoked: 31 Smoking pack-years: 31.00 Smoking status: Current every day smoker Tobacco type: cigarettes Alcohol intake: never Substance use: never Substance use type: does not use Spiritual care concerns: No Meds Home Medications and Allergies Home Medications Medication Instructions Recorded Confirmed Type albuterol sulfate 2.5 mg INHALATION QID PRN #90 ml 02/27/21 03/14/21 Rx apixaban [Eliquis] 5 mg PO BID #120 tablet 02/27/21 03/14/21 Rx diltiazem HCl 240 mg PO QAM #30 cap 02/27/21 03/14/21 Rx furosemide 40 mg PO BID 30 Days #60 tablet 02/27/21 03/14/21 Rx Allergies Allergy/AdvReac Type Severity Reaction Status Date / Time ciprofloxacin [Cipro] Allergy Intermediate Unknown Verified 03/14/21 20:21 clindamycin Allergy Intermediate Unknown Verified 03/14/21 20:21 lisinopril Allergy Intermediate Unknown Verified 03/14/21 20:21 losartan Allergy Intermediate Unknown Verified 03/14/21 20:21 meloxicam Allergy Intermediate Unknown Verified 03/14/21 20:21 meperidine [Demerol] Allergy Intermediate Unknown Verified 03/14/21 20:21 metoprolol Allergy Intermediate Hives Verified 03/14/21 20:21 Penicillins Allergy Intermediate Unknown Verified 03/14/21 20:21 sulfamethoxazole [Bactrim] Allergy Intermediate Unknown Verified 03/14/21 20:21 trimethoprim [Bactrim] Allergy Intermediate Unknown Verified 03/14/21 20:21 methylprednisolone Allergy Swelling Verified 03/14/21 20:21 Vital Signs Vital Signs - 24 hr 03/14/21 19:39 03/14/21 20:22 03/14/21 20:30 Temperature 98.1 F Pulse Rate 137 H 126 H 106 H Respiratory Rate 26 H 21 H Blood Pressure 152/68 H 147/50 H Pulse Oximetry 92 92 03/14/21 21:02 03/14/21 21:05 03/14/21 21:10 Temperature Pulse Rate 105 H 110 H Respiratory Rate 25 H Blood Pressure 161/66 H Pulse Oximetry 88 L 95 03/14/21 21:11 03/14/21 22:29 03/15/21 08:15 Temperature Pulse Rate 106 H 107 H Respiratory Rate 20 24 H Blood Pressure 145/107 H Pulse Oximetry 93 96 Exam Narrative: GENERAL: Labored breathing with accessory muscles in no apparent distress. HEAD: normocephalic, atraumatic. EYES: PERRL. Sclera clear/white. Visio
[2021-03-15 12:20] LABS: Base Excess ABG 14.5 mmol/L (0-2); HCO3 ABG 43.7 mmol/L (23-29); Oxygen Content ABG 15.7 %vol (16.0-22.0); Oxygen Saturation ABG 97.9 % (95-97); Oxyhemoglobin 96.4 % (94-100); PO2 ABG 127.1 mmHg (75-85); Total Hemoglobin 11.4 g/dL (12.0-18.0); pH ABG 7.33 (7.35-7.45)
[2021-03-15 12:23] LABS: Device NASAL CANNULA; Modified Allen's Test Pass; PCO2 ABG 84.2 mmHg (35-45); Site Drawn RIGHT RADIAL
[2021-03-15 12:41] LABS: Lactic Acid Reflex 0.9 mmol/L (0.4-2.0)
[2021-03-15] MEDS: IPRATROPIUM 0.5 MG/ALBUTEROL SULFATE 2.5 MG AMPUL.NEB 3 ML INHALATION ×3 (13:19→23:44)
--- NOTE | 2021-03-15 18:11 | ADMGEN ---
0800 This patient, Omayra Sampson, was admitted to 2nd Floor Room 226-2. Patient oriented to hospital policies and general routines including ID bracelet, bed and alarms, visiting hours, pain management, procedures, bathroom and other care routines, personal items, smoking policy, room service/diet, and no visiting hours d/t covid. Information on how to activate the Rapid Response Team has been discussed. Patient/Family are encouraged to report perceived risks to care and to ask questions if they do not understand what they are told or what they should do.
--- NOTE | 2021-03-15 18:12 | PC.NURSE ---
0800 upon admission to floor. patient changed over to 3 lpm per nc. spo2 staying above 90%. encouraged to deep breathes. at times can be drowsy. does know where she is and her name. at times can be confused. the more you talk the more alert she is. drifts off easily. hob up. a fib on tele. harry drains large amt of urine. 1000 up with one assist and walker to bsc and into recliner with feet up. lg brown soft stool. feet to mid calves are very dry and scaly. has different stages of bruises across beely ranging from yellow green to black. does allso have bruising to r inner thigh. a fib on tele. spo2 remains above 95% @ 3lpm per nc. still gets tired easily with talking and will drift off. 1300 up to bsc and into bed at this time. still 1 assist. talks with on phone. a fib on tele.mod amt of stool in bsc
[2021-03-15] MEDS: traZODone HCL 50 MG TABLET PO (21:31)
[2021-03-15 21:48] LABS: Glucose Point of Care 184 mg/dl (65-105)
[2021-03-16] VITALS (13 sets, daily range): BP systolic 117–166; BP diastolic 47–74; PULSE 68–106; RESP 18–22; TEMP 36.1–36.6; O2SAT 90–99
--- NOTE | 2021-03-16 02:20 | PC.NURSE ---
Completed patient rounding. Patient is sleeping quietly in bed, with no signs of pain or discomfort.
[2021-03-16 04:58] LABS: Hematocrit 32.1 % (35.0-42.0); Hemoglobin 9.9 g/dL (11.7-13.8); Mean Corpuscular HGB Conc 30.8 g/dL (32.0-36.0); Mean Corpuscular Hemoglobin 31.1 pg (27.0-31.0); Mean Corpuscular Volume 100.9 fL (78.0-102.0); Mean Platelet Volume 9.6 fl (9.2-11.8); Platelet Count Result 238 K/mm3 (150-420); Red Blood Count 3.18 M/mm3 (4.20-5.40); Red Cell Distribution Width 14.9 % (11.6-14.4); White Blood Count 4.8 K/mm3 (4.8-10.8)
[2021-03-16 05:21] LABS: Alanine Aminotransferase 36 U/L (14-59); Albumin Level 2.7 g/dL (3.4-5.0); Alkaline Phosphatase 89 U/L (46-116); Anion Gap 1 mmol/L (8-16); Aspartate Amino Transferase 21 U/L (15-37); Bilirubin,Total 0.4 mg/dL (0.00-1.00); Blood Urea Nitrogen 21 mg/dL (7-18); Calcium 8.2 mg/dL (8.5-10.1); Carbon Dioxide 43 mmol/L (21-32); Chloride 101 mmol/L (98-108); Estimated CRCL calculation 59 ml/min; Estimated Glomerular Filt Rate > 60; Glucose 109 mg/dL (70-99); Magnesium 2.2 mg/dL (1.8-2.4); Osmolality Calculated 304 mOsm/kg (285-295); Sodium 145 mmol/L (136-145); Total Protein 5.9 g/dL (6.4-8.2)
[2021-03-16] MEDS: IPRATROPIUM 0.5 MG/ALBUTEROL SULFATE 2.5 MG AMPUL.NEB 3 ML INHALATION ×3 (05:39→18:41)
[2021-03-16] MEDS: APIXABAN 2.5 MG TABLET 5 MG PO ×2 (08:28→20:25)
[2021-03-16] MEDS: dilTIAZem HCL CD 180 MG CAP.ER.24H 360 MG PO (08:28)
[2021-03-16] MEDS: FUROSEMIDE 40 MG TABLET PO ×2 (08:28→16:46)
[2021-03-16 09:43] LABS: NT Pro B Type Natriuretic Pept 4958 pg/mL (0-125)
--- NOTE | 2021-03-16 13:57 | P.PN_ITS ---
Progress Note: A&P Assessment and Plan (1) Acute respiratory distress: Code(s): R06.03 - Acute respiratory distress <Miguelpool MirthaMELA Miramontes - Last Filed: 03/16/21 14:23> Status: Acute <Kirti GuardadoMELA - Last Filed: 03/16/21 14:23> Assessment and Plan: * Secondary to COPD excerbation versus pneumonia versus COVID along * ABG pH 7.21>7.22>7.31 co2 103.5>99.2>78.7 o2 83.5>91.1>100.2, hco3 40.3>39.9>38.4, improved repeat ABG at 12:00 * Patient placed on BiPAP overnight currently on 3 L nasal cannula satting 96% * Continue azithromycin with Rocephin duo nebulizers and Solu-Medrol * Lactic acid WNL * WBCs within normal limits <MELA Koenig - Last Filed: 03/16/21 14:23> (2) Atrial fibrillation with rapid ventricular response: Code(s): I48.91 - Unspecified atrial fibrillation <Kirti MirthaMELA Miramontes - Last Filed: 03/16/21 14:23> Status: Acute <Kirti MirthaMELA Miramontes - Last Filed: 03/16/21 14:23> Assessment and Plan: * Controlled * EKG indicates A. fib with RVR with heart rate of 107 * Patient home medication card 50 mg daily increase to 360 mg daily * Patient given labetalol 5 mg IV push 1 time in the ED * Continue telemetry * Will adjust medication as needed <MELA Koenig - Last Filed: 03/16/21 14:23> (3) Acute kidney injury: Code(s): N17.9 - Acute kidney failure, unspecified <MELA Koenig - Last Filed: 03/16/21 14:23> Status: Acute <Kirti MirthaMELA Miramontes - Last Filed: 03/16/21 14:23> Assessment and Plan: * Possibly secondary to infection * Creatinine 1.09 >0.86>0.86 BUN 19>21, baseline BUN 28-37 creatinine 0.78-0.83 * Avoid nephrotoxic agent * Renal dose medication * Will trend <Kirti ShannonMELISSA MiramontesRiriShena - Last Filed: 03/16/21 14:23> (4) CHF (congestive heart failure): Onset Date: 05/23/15 <Kirti Bo MELA Guardado - Last Filed: 03/16/21 14:23> Qualifiers: Heart failure chronicity: acute on chronic Heart failure type: systolic Qualified Code(s): I50.23 - Acute on chronic systolic (congestive) heart failure <Kirti ShannonMELISSA MiramontesRiriShena - Last Filed: 03/16/21 14:23> Code(s): I50.9 - Heart failure, unspecified <Miguelpool MirthaMELA Miramontes - Last Filed: 03/16/21 14:23> Status: Acute <Kirti Bo MELISSA GuardadoRiriShena - Last Filed: 03/16/21 14:23> Assessment and Plan: * [id number] * Lasix 60 mg IV push given in ED * Restarted Lasix 40 mg twice daily * Continue daily weights and I's and O's <Miguelpool MirthaMELISSA MiramontesRiriShena - Last Filed: 03/16/21 14:23> (5) HTN (hypertension): Onset Date: 12/27/14 <Miguelpool MirthaMELISSA MiramontesRiriShena - Last Filed: 03/16/21 14:23> Code(s): I10 - Essential (primary) hypertension <MELISSA KoenigRiriShena - Last Filed: 03/16/21 14:23> Status: Acute <Kirti ShannonMELISSA MiramontesRiriShena - Last Filed: 03/16/21 14:23> Assessment and Plan: * Blood pressure 145/107 * Increase Cardizem to 360 mg daily * Vital signs as ordered * Will adjust medication as needed <MELA Koenig - Last Filed: 03/16/21 14:23> (6) COPD (chronic obstructive pulmonary disease): Qualifiers: COPD type: emphysema Emphysema type: unspecified Qualified Code(s): J43.9 - Emphysema, unspecified <MELA Koenig - Last Filed: 03/16/21 14:23> Code(s): J44.9 - Chronic obstructive pulmonary disease, unspecified <MELA Koenig - Last Filed: 03/16/21 14:23> Status: Acute <MELA Koenig - Last Filed: 03/16/21 14:23>
--- NOTE | 2021-03-16 13:57 | WPDPN ---
Progress Note: A&P Assessment and Plan (1) Acute respiratory distress: Code(s): R06.03 - Acute respiratory distress <MELA Koenig - Last Filed: 03/16/21 14:23> Status: Acute <MELA Koenig - Last Filed: 03/16/21 14:23> Assessment and Plan: Secondary to COPD excerbation versus pneumonia versus COVID along ABG pH 7.21>7.22>7.31 co2 103.5>99.2>78.7 o2 83.5>91.1>100.2, hco3 40.3>39.9>38.4, improved repeat ABG at 12:00 Patient placed on BiPAP overnight currently on 3 L nasal cannula satting 96% Continue azithromycin with Rocephin duo nebulizers and Solu-Medrol Lactic acid WNL WBCs within normal limits <MELA Koenig - Last Filed: 03/16/21 14:23> (2) Atrial fibrillation with rapid ventricular response: Code(s): I48.91 - Unspecified atrial fibrillation <MELA Koenig - Last Filed: 03/16/21 14:23> Status: Acute <MELA Koenig - Last Filed: 03/16/21 14:23> Assessment and Plan: Controlled EKG indicates A. fib with RVR with heart rate of 107 Patient home medication card 50 mg daily increase to 360 mg daily Patient given labetalol 5 mg IV push 1 time in the ED Continue telemetry Will adjust medication as needed <MELA Koenig - Last Filed: 03/16/21 14:23> (3) Acute kidney injury: Code(s): N17.9 - Acute kidney failure, unspecified <MELA Koenig - Last Filed: 03/16/21 14:23> Status: Acute <MELA Koenig - Last Filed: 03/16/21 14:23> Assessment and Plan: Possibly secondary to infection Creatinine 1.09 >0.86>0.86 BUN 19>21, baseline BUN 28-37 creatinine 0.78-0.83 Avoid nephrotoxic agent Renal dose medication Will trend <MELA Koenig - Last Filed: 03/16/21 14:23> (4) CHF (congestive heart failure): Onset Date: 05/23/15 <MELA Koenig - Last Filed: 03/16/21 14:23> Qualifiers: Heart failure chronicity: acute on chronic Heart failure type: systolic Qualified Code(s): I50.23 - Acute on chronic systolic (congestive) heart failure <MELA Koenig - Last Filed: 03/16/21 14:23> Code(s): I50.9 - Heart failure, unspecified <MELA Koenig - Last Filed: 03/16/21 14:23> Status: Acute <MELA Koenig - Last Filed: 03/16/21 14:23> Assessment and Plan: [id number] Lasix 60 mg IV push given in ED Restarted Lasix 40 mg twice daily Continue daily weights and I's and O's <MELA Koenig - Last Filed: 03/16/21 14:23> (5) HTN (hypertension): Onset Date: 12/27/14 <MELA Koenig - Last Filed: 03/16/21 14:23> Code(s): I10 - Essential (primary) hypertension <MELA Koenig - Last Filed: 03/16/21 14:23> Status: Acute <MELA Koenig - Last Filed: 03/16/21 14:23> Assessment and Plan: Blood pressure 145/107 Increase Cardizem to 360 mg daily Vital signs as ordered Will adjust medication as needed <MELA Koenig - Last Filed: 03/16/21 14:23> (6) COPD (chronic obstructive pulmonary disease): Qualifiers: COPD type: emphysema Emphysema type: unspecified Qualified Code(s): J43.9 - Emphysema, unspecified <MELA Koenig - Last Filed: 03/16/21 14:23> Code(s): J44.9 - Chronic obstructive pulmonary disease, unspecified <MELA Koenig - Last Filed: 03/16/21 14:23> Status: Acute <MELA Koenig - Last Filed: 03/16/21 14:23> Assessment and Plan: Worsened due to pneumonia Continue azithromycin and Rocephin and duo nebulizer patient notes that she is allergic to prednisone and Solu-Medrol given severe rash <MELA Koenig - Last Filed: 03/16/21 14:23> (7) Elevated d-dimer: Code(s): R79.89 - Other specified abnormal findings of blood chemistry quality control technician
[2021-03-16] MEDS: traZODone HCL 50 MG TABLET PO (21:46)
--- NOTE | 2021-03-16 23:25 | PC.NURSE ---
Completed bedside change of shift report. Patient was resting quietly in bed. Patient indicated she wanted a glass of ice and a pepsi. Patient stated she did not need anything else.
--- NOTE | 2021-03-16 23:28 | PC.NURSE ---
resp here and placing patient on bi pap with setting 12 and 15l.
[2021-03-17] VITALS (11 sets, daily range): BP systolic 120–167; BP diastolic 44–62; PULSE 77–104; RESP 18–20; TEMP 36.1–36.6; O2SAT 90–97
[2021-03-17] MEDS: IPRATROPIUM 0.5 MG/ALBUTEROL SULFATE 2.5 MG AMPUL.NEB 3 ML INHALATION ×3 (00:28→13:05)
--- NOTE | 2021-03-17 01:53 | PC.NURSE ---
Dr. Mcconnell notified of pt's request for medication to control her cough; Orders received and noted.
[2021-03-17] MEDS: guaiFENesin 12 HR 600 MG TABCR PO ×2 (01:55→08:37)
[2021-03-17 05:59] LABS: Hematocrit 30.9 % (35.0-42.0); Hemoglobin 9.6 g/dL (11.7-13.8); Mean Corpuscular HGB Conc 31.1 g/dL (32.0-36.0); Mean Corpuscular Hemoglobin 30.7 pg (27.0-31.0); Mean Corpuscular Volume 98.7 fL (78.0-102.0); Mean Platelet Volume 10.1 fl (9.2-11.8); Platelet Count Result 259 K/mm3 (150-420); Red Blood Count 3.13 M/mm3 (4.20-5.40); Red Cell Distribution Width 15.3 % (11.6-14.4); White Blood Count 4.3 K/mm3 (4.8-10.8)
[2021-03-17 06:22] LABS: Alanine Aminotransferase 30 U/L (14-59); Albumin Level 2.6 g/dL (3.4-5.0); Alkaline Phosphatase 84 U/L (46-116); Anion Gap 3 mmol/L (8-16); Aspartate Amino Transferase 15 U/L (15-37); Bilirubin,Total 0.3 mg/dL (0.00-1.00); Blood Urea Nitrogen 15 mg/dL (7-18); Calcium 8.6 mg/dL (8.5-10.1); Carbon Dioxide 40 mmol/L (21-32); Chloride 102 mmol/L (98-108); Estimated CRCL calculation 73 ml/min; Estimated Glomerular Filt Rate > 60; Glucose 112 mg/dL (70-99); Magnesium 2.1 mg/dL (1.8-2.4); Osmolality Calculated 301 mOsm/kg (285-295); Potassium 3.3 mmol/L (3.5-5.1); Sodium 145 mmol/L (136-145); Total Protein 6.4 g/dL (6.4-8.2)
[2021-03-17 06:49] LABS: NT Pro B Type Natriuretic Pept 2424 pg/mL (0-125)
--- NOTE | 2021-03-17 08:05 | P.DS_ITS ---
DS: Admitting Diagnosis Discharge Date 03/17/2021 Admitting Diagnosis Pneumonia, acute kidney injury, congestive heart failure and A. fib with RVR DS: Discharge Diagnosis Discharge Diagnosis (1) Acute respiratory distress: Code(s): R06.03 - Acute respiratory distress Status: Acute Assessment and Plan: * Secondary to COPD excerbation versus pneumonia versus COVID along * ABG pH 7.21>7.22>7.31 co2 103.5>99.2>78.7 o2 83.5>91.1>100.2, hco3 40.3>39.9>38.4, improved repeat ABG at 12:00 * Patient placed on BiPAP overnight currently on 3 L nasal cannula satting 96% * Continue azithromycin with Rocephin duo nebulizers and Solu-Medrol * Lactic acid WNL * WBCs within normal limits (2) Atrial fibrillation with rapid ventricular response: Code(s): I48.91 - Unspecified atrial fibrillation Status: Acute Assessment and Plan: * Controlled * EKG indicates A. fib with RVR with heart rate of 107 * Patient home medication card 50 mg daily increase to 360 mg daily * Patient given labetalol 5 mg IV push 1 time in the ED * Continue telemetry * Will adjust medication as needed (3) Acute kidney injury: Code(s): N17.9 - Acute kidney failure, unspecified Status: Acute Assessment and Plan: * Possibly secondary to infection * Creatinine 1.09 >0.86>0.86 BUN 19>21, baseline BUN 28-37 creatinine 0.78-0.83 * Avoid nephrotoxic agent * Renal dose medication * Will trend (4) CHF (congestive heart failure): Onset Date: 05/23/15 Qualifiers: Heart failure chronicity: acute on chronic Heart failure type: systolic Qualified Code(s): I50.23 - Acute on chronic systolic (congestive) heart failure Code(s): I50.9 - Heart failure, unspecified Status: Acute Assessment and Plan: * [id number] * Lasix 60 mg IV push given in ED * Restarted Lasix 40 mg twice daily * Continue daily weights and I's and O's (5) HTN (hypertension): Onset Date: 12/27/14 Code(s): I10 - Essential (primary) hypertension Status: Acute Assessment and Plan: * Blood pressure 145/107 * Increase Cardizem to 360 mg daily * Vital signs as ordered * Will adjust medication as needed (6) COPD (chronic obstructive pulmonary disease): Qualifiers: COPD type: emphysema Emphysema type: unspecified Qualified Code(s): J43.9 - Emphysema, unspecified Code(s): J44.9 - Chronic obstructive pulmonary disease, unspecified Status: Acute Assessment and Plan: * Worsened due to pneumonia * Continue azithromycin and Rocephin and duo nebulizer patient notes that she is allergic to prednisone and Solu-Medrol given severe rash (7) Elevated d-dimer: Code(s): R79.89 - Other specified abnormal findings of blood chemistry Status: Acute Assessment and Plan: * D-dimer 0.96 * CTA does not indicate pulmonary edema (8) PNA (pneumonia): Code(s): J18.9 - Pneumonia, unspecified organism Status: Acute Assessment and Plan: * CTA indicates upper lobe pneumonia which is different from her previous chest x-ray * Started azithromycin and Rocephin * WBCs normal limits patient afebrile * DS: Summary Hospital Course Reason for hospitalization: Pneumonia, A. fib with RVR, congestive heart failure and acute kidney injury Hospital Course: this is a 70-year-old female who presented to our emergency department with complaints of shortness of breath and dyspnea. According to patient she started to experience increased shortness of breath yesterday. Patient notes
--- NOTE | 2021-03-17 08:05 | PM.DS ---
DS: Admitting Diagnosis Discharge Date 03/17/2021 Admitting Diagnosis Pneumonia, acute kidney injury, congestive heart failure and A. fib with RVR DS: Discharge Diagnosis Discharge Diagnosis (1) Acute respiratory distress: Code(s): R06.03 - Acute respiratory distress Status: Acute Assessment and Plan: Secondary to COPD excerbation versus pneumonia versus COVID along ABG pH 7.21>7.22>7.31 co2 103.5>99.2>78.7 o2 83.5>91.1>100.2, hco3 40.3>39.9>38.4, improved repeat ABG at 12:00 Patient placed on BiPAP overnight currently on 3 L nasal cannula satting 96% Continue azithromycin with Rocephin duo nebulizers and Solu-Medrol Lactic acid WNL WBCs within normal limits (2) Atrial fibrillation with rapid ventricular response: Code(s): I48.91 - Unspecified atrial fibrillation Status: Acute Assessment and Plan: Controlled EKG indicates A. fib with RVR with heart rate of 107 Patient home medication card 50 mg daily increase to 360 mg daily Patient given labetalol 5 mg IV push 1 time in the ED Continue telemetry Will adjust medication as needed (3) Acute kidney injury: Code(s): N17.9 - Acute kidney failure, unspecified Status: Acute Assessment and Plan: Possibly secondary to infection Creatinine 1.09 >0.86>0.86 BUN 19>21, baseline BUN 28-37 creatinine 0.78-0.83 Avoid nephrotoxic agent Renal dose medication Will trend (4) CHF (congestive heart failure): Onset Date: 05/23/15 Qualifiers: Heart failure chronicity: acute on chronic Heart failure type: systolic Qualified Code(s): I50.23 - Acute on chronic systolic (congestive) heart failure Code(s): I50.9 - Heart failure, unspecified Status: Acute Assessment and Plan: [id number] Lasix 60 mg IV push given in ED Restarted Lasix 40 mg twice daily Continue daily weights and I's and O's (5) HTN (hypertension): Onset Date: 12/27/14 Code(s): I10 - Essential (primary) hypertension Status: Acute Assessment and Plan: Blood pressure 145/107 Increase Cardizem to 360 mg daily Vital signs as ordered Will adjust medication as needed (6) COPD (chronic obstructive pulmonary disease): Qualifiers: COPD type: emphysema Emphysema type: unspecified Qualified Code(s): J43.9 - Emphysema, unspecified Code(s): J44.9 - Chronic obstructive pulmonary disease, unspecified Status: Acute Assessment and Plan: Worsened due to pneumonia Continue azithromycin and Rocephin and duo nebulizer patient notes that she is allergic to prednisone and Solu-Medrol given severe rash (7) Elevated d-dimer: Code(s): R79.89 - Other specified abnormal findings of blood chemistry Status: Acute Assessment and Plan: D-dimer 0.96 CTA does not indicate pulmonary edema (8) PNA (pneumonia): Code(s): J18.9 - Pneumonia, unspecified organism Status: Acute Assessment and Plan: CTA indicates upper lobe pneumonia which is different from her previous chest x-ray Started azithromycin and Rocephin WBCs normal limits patient afebrile DS: Summary Hospital Course Reason for hospitalization: Pneumonia, A. fib with RVR, congestive heart failure and acute kidney injury Hospital Course: this is a 70-year-old female who presented to our emergency department with complaints of shortness of breath and dyspnea. According to patient she started to experience increased shortness of breath yesterday. Patient notes that she did use her nebulizer with no relief. Patient was also recently diagnosed with COVID February 19 when she was released she was released with 3 days of dexamethasone. While in the ED patient was found to be in A. fib with RVR she was given labetalol 5 mg IV . Patient will discharge today with azithromycin and cefdinir patient notes that she is allergic to prednisone she will not go home with any prednisone. The patient julio
[2021-03-17] MEDS: dilTIAZem HCL CD 180 MG CAP.ER.24H 360 MG PO (08:37)
[2021-03-17] MEDS: APIXABAN 2.5 MG TABLET 5 MG PO (08:37)
[2021-03-17] MEDS: FUROSEMIDE 40 MG TABLET PO (08:37)
--- NOTE | 2021-03-17 13:53 | PC.NURSE ---
Discharge instructions reviewed with patient. All questions answered. Pt now waiting for to arrive with clothing to go home in.
--- NOTE | 2021-03-21 10:30 | PC.NURSE ---
Unable to contact for discharge call back.
== END 2021-03-17 13:55 | disposition home or self-care (01) | DRG 190 ==
LOC: CHSED 03-15 07:28 → CHS2ND 03-15 07:39
PROVIDERS: Nurse Practitioner; Admitting Provider Emergency Medicine; Emergency Provider Emergency Medicine; PCP Nurse Practitioner Family; Visit Provider Emergency Medicine
DX: J44.0 Chronic obstructive pulmonary disease with (acute) lower respiratory infection (principal); J18.9 Pneumonia, unspecified organism; I50.23 Acute on chronic systolic (congestive) heart failure; I48.20 Chronic atrial fibrillation, unspecified; N17.9 Acute kidney failure, unspecified; I11.0 Hypertensive heart disease with heart failure; R06.03 Acute respiratory distress; Z86.16 Personal history of COVID-19
CPT/HCPCS: 36415; 36600; 71275; 80053; 82805; 82948; 83605; 83735; 83880; 84484; 85025; 85027; 85380; 93005; 94640; 96374; 96375; 96376; 99285; A9270; J0456; J0696; J1160; J1940; J2060; Q9967

== ENCOUNTER 2021-04-13 10:29 | Outpatient (NON) | payer MEDICARE, SELFPAY ==
[2021-04-13 10:43] LABS: Bilirubin Urine Negative (Negative); Blood Urine Negative (Negative); Color Urine Yellow (Yellow); Glucose Urine UA Negative (Negative); Ketones Urine Negative (Negative); Leukocyte Esterase Ur Negative LEU/UL (Negative); Nitrate Urine Negative (Negative); Protein Urine Negative (Negative); Specific Grav Ur >= 1.030 (1.010-1.020); pH Urine 5.5 (5.0-8.0)
[2021-04-13 10:47] LABS: Add Urine Microscopic? YES; Appearance Urine Cloudy (Clear); RBC Urine None seen /hpf (0-2); WBC Urine None seen /hpf (0-3)
[2021-04-13 10:48] LABS: Amorphous Sediment Urine Heavy; Squamous Epithelial Cell Urine None seen /hpf (Few)
[2021-04-13 10:49] LABS: Bacteria Urine 1+ /hpf
== END 2021-04-13 10:30 | disposition home or self-care (01) ==
LOC: CHSLAB 10:30
PROVIDERS: Visit Provider Nurse Practitioner Family
DX: R44.3 Hallucinations, unspecified (principal)
CPT/HCPCS: 81001

== ENCOUNTER 2021-05-08 18:03 | Observation (INO) | payer MEDICARE, SELFPAY ==
[2021-05-08] VITALS (10 sets, daily range): BP systolic 110–175; BP diastolic 48–100; PULSE 100–120; RESP 20–30; TEMP 35.7–36.6; O2SAT 87–97
--- NOTE | ~2021-05-08 | XR_ITS ---
EXAMINATION: XR chest 1V portable DATE: 05/08/2021 18:58 INDICATION: Severe shortness of breath and weakness TECHNIQUE: frontal view of the chest was obtained. COMPARISON: Chest radiograph dated 02/19/[address] dated 03/14/2021 FINDINGS: New dense opacification of the right mid to lower lung zone consistent with moderate size right pleur al effusion with associated atelectasis and/or pneumonia. Persistent patchy groundglass opacity in th e left midlung zone suspicious for pneumonia. No pneumothorax or left-sided pleural effusion. The enl arged cardiac silhouette is largely obscured. IMPRESSION: 1. New moderate-sized right pleural effusion with associated atelectasis and/or pneumonia in the righ t mid to lower lung zone. 2. Persistent less dense patchy airspace opacities in the right midlung zone consistent with pneumoni a, atelectasis/scarring or less likely pulmonary edema. 3. Cardiomegaly. Reviewed, dictated and finalized at location A. ESSIONAL ADVISOR IMPRESSION: 1. New moderate-sized right pleural effusion with associated atelectasis and/or pneumonia in the right mid to lower lung zone. 2. Persistent less dense patchy airspace opacities in the right midlung zone co nsistent with pneumonia, atelectasis/scarring or less likely pulmonary edema. 3. Cardiomegaly.
--- NOTE | ~2021-05-08 | CT_ITS ---
EXAMINATION: CT brain wo con DATE: 05/08/2021 18:30 INDICATION: Weakness. Altered mental status. TECHNIQUE: Computed tomography (CT) of the head was performed without intravenous contrast. Sagittal and coronal reconstructions were performed. The mA was adjusted according to patient size. Iterative reconstruction technique was employed. The dose-length product was 605.33 mGy-cm. COMPARISON: None FINDINGS: No acute intracranial hemorrhage, acute infarction or abnormal extra axial fluid collection. There is mild scattered white matter hypoattenuation consistent with chronic small vessel ischemic disease. Ventricles are normal and symmetric. No mass/mass effect. The orbits, paranasal sinuses and mastoid a ir cells are normal. IMPRESSION: 1. No acute intracranial process. 2. Mild scattered white matter hypoattenuation consistent with chronic small vessel ischemic disease. Reviewed, dictated and finalized at location A. PATCHER IMPRESSION: 1. No acute intracranial process. 2. Mild scattered white matter hypoattenuation consistent with chronic small ve ssel ischemic disease.
--- NOTE | 2021-05-08 18:26 | ECG_ITS ---
Measurements Intervals [place] Rate: 117 P: MN: 0 QRS: 53 QRSD: 98 T: 96 QT: 324 QTc: 454 Interpretive Statements ATRIAL FIBRILLATION WITH RAPID VENTRICULAR RESPONSE LOW QRS VOLTAGE IN PRECORDIAL LEADS [QRS DEFLECTION < 1.0 mV IN CHEST LEADS] POSSIBLE ANTERIOR MYOCARDIAL INFARCTION , OF INDETERMINATE AGE [30 ms Q WAVE IN V3/V4, OR R < 0.2 mV IN V4] COMPARED TO ECG 03/14/2021 20:15:51 NO SIGNIFICANT CHANGES Electronically Signed On 05-09-2021 13:04:00 EXTENSION DIVISION DIRECTOR by Osbaldo Mora M.D.
[2021-05-08 18:53] LABS: Base Excess ABG 9.8 mmol/L (0-2); HCO3 ABG 40.6 mmol/L (23-29); Oxygen Content ABG 16.7 %vol (16.0-22.0); Oxygen Saturation ABG 87.8 % (95-97); Oxyhemoglobin 86.7 % (94-100); PO2 ABG 63.2 mmHg (75-85); Total Hemoglobin 13.7 g/dL (12.0-18.0); pH ABG 7.27 (7.35-7.45)
[2021-05-08 18:55] LABS: Device NASAL CANNULA; Modified Allen's Test Pass; PCO2 ABG 91.2 mmHg (35-45); Site Drawn RIGHT RADIAL
--- NOTE | 2021-05-08 18:55 | PC.NURSE ---
lab called with critical pco2 of 91.2
[2021-05-08 18:56] LABS: Basophils Absolute Auto 0.07 K/mm3 (0.00-0.10); Basophils Percent Auto 0.9 % (0.0-1.0); Eosinophils Absolute Auto 0.02 K/mm3 (0.02-0.50); Eosinophils Percent Auto 0.3 % (1.0-6.0); Hematocrit 44.1 % (35.0-42.0); Immature Granulocyte Absolute 0.03 K/mm3 (0.00-0.00); Immature Granulocyte Percent A 0.4 % (0.0-0.0); Lymphocytes Percent Auto 7.8 % (18.0-42.0); Mean Corpuscular HGB Conc 29.5 g/dL (32.0-36.0); Mean Corpuscular Hemoglobin 29.3 pg (27.0-31.0); Mean Corpuscular Volume 99.5 fL (78.0-102.0); Mean Platelet Volume 10.5 fl (9.2-11.8); Monocytes Absolute Auto 0.51 K/mm3 (0.10-0.90); Monocytes Percent Auto 6.6 % (2.0-11.0); Neutrophils Absolute Auto 6.5 K/mm3 (1.7-7.2); Platelet Count Result 253 K/mm3 (150-420); Red Blood Count 4.43 M/mm3 (4.20-5.40); Red Cell Distribution Width 14.7 % (11.6-14.4); White Blood Count 7.7 K/mm3 (4.8-10.8)
[2021-05-08] MEDS: LORazepam INJ (*CRX) 2 MG/ML VIAL 1 MG IV PUSH (19:14)
[2021-05-08] MEDS: methylPREDNISolone SOD SUCC 125 MG VIAL IV PUSH (19:14)
[2021-05-08 19:17] LABS: Lactic Acid Reflex 1.9 mmol/L (0.4-2.0)
[2021-05-08 19:19] LABS: Alanine Aminotransferase 22 U/L (14-59); Albumin Level 3.3 g/dL (3.4-5.0); Alkaline Phosphatase 91 U/L (46-116); Anion Gap 2 mmol/L (8-16); Aspartate Amino Transferase 24 U/L (15-37); Bilirubin,Total 0.7 mg/dL (0.00-1.00); Blood Urea Nitrogen 25 mg/dL (7-18); Calcium 8.9 mg/dL (8.5-10.1); Carbon Dioxide 42 mmol/L (21-32); Chloride 99 mmol/L (98-108); Estimated Glomerular Filt Rate 47; Glucose 151 mg/dL (70-99); NT Pro B Type Natriuretic Pept 3735 pg/mL (0-125); Osmolality Calculated 303 mOsm/kg (285-295); Potassium 4.5 mmol/L (3.5-5.1); Sodium 143 mmol/L (136-145); Total Protein 7.4 g/dL (6.4-8.2)
[2021-05-08] MEDS: ALBUTEROL SULFATE (*SP) INHALER 4 PUFF INHALATION (19:24)
--- NOTE | 2021-05-08 19:30 | PC.NURSE ---
Report received, RT in c pt and setting up Bipap for pt per orders of ERP Dr Mcconnell. Pt is sedated at this time c Ativan, Bipap in place at time of assessment. Spoke c pts spouse and he Reports pt is DNR and wants most minimally invasive procedures and to keep pt comfortable. Info and report relayed to ERP Dr Mcconnell.
[2021-05-08] MEDS: SODIUM BICARBONATE 8.4% 50 MEQ/50 ML SYRINGE IV PUSH ×2 (19:35→19:38)
[2021-05-08] MEDS: SODIUM CHLORIDE 0.9% IV 500 ML 999 ML IV CONT (19:35)
--- NOTE | 2021-05-08 19:58 | ED.SOB ---
HPI - SOB/Dyspnea General Chief Complaint: Shortness of Breath/Dyspnea Stated Complaint: amb Time Seen by Provider: 05/08/21 18:05 Source: patient, family, EMS and RN notes reviewed Mode of arrival: EMS Limitations: no limitations History of Present Illness MD elicited complaint: shortness of breath Pertinent past history: COPD, congestive heart failure and pneumonia Onset (ago): day(s) (1) Context: recent illness and other (pt had mild speech slurring at home. not evident in the ED) Timing: constant (SOB was persistent.) Severity: moderate Exacerbating factors: lying flat Relieving factors: bronchodilators and upright position Known history of: COPD, congestive heart failure and recurrent pneumonia Associated symptoms: wheezing and palpitations Treatment prior to arrival: oxygen and other (Pt is a DNR. Pt and family will refuse CPR, intubation and transfer to higher level of care.) Related Data Home oxygen amount: 4 liters Home Medications Medication Instructions Recorded Confirmed albuterol sulfate 90 mcg/actuation 2 puff INHALATION PRN PRN g 03/28/21 05/08/21 aerosol inhaler Allergies Allergy/AdvReac Type Severity Reaction Status Date / Time ciprofloxacin [Cipro] Allergy Intermediate Unknown Verified 05/08/21 18:57 clindamycin Allergy Intermediate Unknown Verified 05/08/21 18:57 lisinopril Allergy Intermediate Unknown Verified 05/08/21 18:57 losartan Allergy Intermediate Unknown Verified 05/08/21 18:57 meloxicam Allergy Intermediate Unknown Verified 05/08/21 18:57 meperidine [Demerol] Allergy Intermediate Unknown Verified 05/08/21 18:57 metoprolol Allergy Intermediate Hives Verified 05/08/21 18:57 Penicillins Allergy Intermediate Unknown Verified 05/08/21 18:57 sulfamethoxazole [Bactrim] Allergy Intermediate Unknown Verified 05/08/21 18:57 trimethoprim [Bactrim] Allergy Intermediate Unknown Verified 05/08/21 18:57 prednisone Allergy Unknown Rash Verified 05/08/21 18:57 azithromycin Allergy Rash Verified 05/08/21 18:57 methylprednisolone Allergy Swelling Verified 05/08/21 18:57 Review of Systems Review of Systems: All systems reviewed & are unremarkable except as noted in HPI and below Respiratory: Respiratory: Reports dyspnea PMFSH Past Medical History Medical History Acute upper respiratory infection (02/14/15) CHF (congestive heart failure) (05/23/15) Chronic cough (12/16/14) Cigarette smoker (01/28/17) COPD (chronic obstructive pulmonary disease) Fatigue (12/24/16) Hip pain (06/27/15) HTN (hypertension) (12/27/14) Rash (12/18/16) Surgical History Surgical History History of hysterectomy Social History Social History Smoking packs per day: 1 Smoking cigarettes per day: 20.0 Years smoked: 31 Smoking pack-years: 31.00 Smoking status: Former smoker Tobacco type: cigarettes Second hand tobacco smoke exposure: Yes Smoking end date: 02/17/21 Alcohol intake: never Substance use: never Substance use type: does not use Spiritual care concerns: No Exam Const: General: alert and ill appearing Nutritional Appearance: obese Orientation/consciousness: patient oriented x3 HENMT: Head: normal to inspection Ears: external ears normal, TM's normal bilaterally and EAC's normal General nose exam: Normal external nose present and Normal nares present Face and sinus: normal facial exam and sinuses nontender Mouth: Yes lip normal and Yes moist mucous membranes Throat: posterior oropharynx normal Eyes: Conjunctivae: conjunctivae normal Pupils: Equal, round and reactive pupils present EOM: EOMs intact bilaterally Neck: Neck: normal visual inspection and no lymphadenopathy Other: supple Chest: Chest palpation & inspection: normal inspection of the chest Resp: Effort & Inspection: labored, retractions, tachypneic and
[2021-05-08] MEDS: FUROSEMIDE INJ 100 MG/10 ML VIAL 80 MG IV PUSH (20:17)
--- NOTE | 2021-05-08 20:30 | PC.NURSE ---
DNR POLST paperwork signed by spouse and witnessed, copy placed on pt chart.
[2021-05-08 20:45] LABS: Add Urine Microscopic? YES; Appearance Urine Clear (Clear); Bilirubin Urine 1+ (Negative); Blood Urine Negative (Negative); Color Urine Dark Yellow (Yellow); Glucose Urine UA Negative (Negative); Ketones Urine Negative (Negative); Leukocyte Esterase Ur Negative (Negative); Nitrate Urine Negative (Negative); Protein Urine 2+ (Negative); Specific Grav Ur >= 1.030 (1.010-1.020); pH Urine 5.5 (5.0-8.0)
[2021-05-08 20:52] LABS: Bacteria Urine Trace /hpf; Mucus Urine Few /lpf; RBC Urine 0-2 /hpf (0-2); Squamous Epithelial Cell Urine Rare /hpf (Few); WBC Urine 0-3 /hpf (0-3)
--- NOTE | 2021-05-08 21:00 | PC.NURSE ---
Updated report given to MARGOTH Bustamante for placement to Obs., orders being written and bed assignment obtained from Tisha White.
--- NOTE | 2021-05-08 22:00 | PC.NURSE ---
Pts family all hear to see pt before taken upstairs to for admission, emergency contact #'s obtained and placed in pt record. Pt VSS at this time, pt becoming slightly more awake, will open eyes tat times and move extremities. pt repositioned in bed for comfort.
[2021-05-08] MEDS: ALBUTEROL SULFATE NEB 2.5 MG/3 ML INH INHALATION (22:02)
[2021-05-08 22:03] LABS: Base Excess ABG 17.7 mmol/L (0-2); HCO3 ABG 51.3 mmol/L (23-29); Oxygen Content ABG 15.6 %vol (16.0-22.0); Oxygen Saturation ABG 80.5 % (95-97); Oxyhemoglobin 79.5 % (94-100); PO2 ABG 54.2 mmHg (75-85); pH ABG 7.24 (7.35-7.45)
[2021-05-08 22:04] LABS: PCO2 ABG 123.6 mmHg (35-45)
[2021-05-08 22:05] LABS: Device BIPAP; Fractional Inspired Oxygen 40 %; Modified Allen's Test Pass; Site Drawn RIGHT RADIAL
[2021-05-08 22:06] LABS: Inspiratory Pressure 20 cmH2O
[2021-05-08 22:08] LABS: Expiratory Pressure 10 cmH2O
--- NOTE | 2021-05-08 22:35 | ADMGEN ---
This patient, Omayra Sampson, was admitted to 2nd Floor Room 206-1. Patient/family oriented to hospital policies and general routines including ID bracelet, bed and alarms, visiting hours, pain management, procedures, bathroom and other care routines, personal items, smoking policy, room service/diet, and visiting hours. Information on how to activate the Rapid Response Team has been discussed. Patient/Family are encouraged to report perceived risks to care and to ask questions if they do not understand what they are told or what they should do.
--- NOTE | 2021-05-08 23:48 | PC.NURSE ---
This television writer communicated with the respiratory therapist Pam to examine the pt. Pt is displaying a rattle, pt's color has become more pale, and pt's O2 level decreasing with no change in oxygen delivery. Communication to the Charge nurse Kati Aj RN to contact the PAYMENT PROCESSOR Robby. Awaiting further orders.
--- NOTE | 2021-05-08 23:55 | PC.NURSE ---
Spoke with Zeus Benson NP, regarding pt's deteriorating condition; New orders received and noted.
--- NOTE | 2021-05-09 | PC.NURSE ---
,Maksim Dixon, was contacted about the current findings with Omayra and how her she condition is declining. Pt's was made of aware of signs that could be possibly upsetting and verbalized understanding. He was notified of a total visitors in the room at one time being 2 people and he verbalized understanding. Maksim stated he would on his way quickly.
[2021-05-09 00:02] VITALS: PULSE 112; RESP 24; O2SAT 85
[2021-05-09] MEDS: MORPHINE SULFATE (*CRX) 2 MG/ML INJ IV PUSH (00:09)
--- NOTE | 2021-05-09 00:20 | PC.NURSE ---
Pt's and son arrived to the floor to be with Omayra and was offered tissues and any comfort needs they would have. Family declined any refreshments or snacks, but did verbalize appreciation of notifying them on Omayra's condition.
--- NOTE | 2021-05-09 01:01 | PC.NURSE ---
Pt's family had questions regarding the equipment being used on Omayra and was educated that we are providing what the provider feels will give Omayra the most comfort at this time. Pt's family was also educated on the signs of passing or discomfort and to notify the nurse of findings. Family verbalized understanding for both, but reinforcement may be needed. Family was made aware if they have any needs to make this time easier to cope/make them comfortable to notify this ticket writer.
[2021-05-09 01:08] VITALS: PULSE 110; O2SAT 71
--- NOTE | 2021-05-09 04:22 | PC.NURSE ---
Pt's daughter and were with the pt when the daughter had notified this rewriter that she believed her mom was no longer breathing. This rewriter did an assessment on Omayra and verified with Kati Aj RN. that Omayra had at 01:45 05/09/2021 with her daughter, Matilde, and , Maksim at her side. This rewriter did allow the pt's son and other daughter, Kaleigh, in the pt's room to have closure. The expiration assessment was completed and parties that needed to be notified had been completed with times charted in said assessment. Family was given privacy to grieve amongst themselves and to notify this rewriter if they had a request to help make them more comfortable. Family was given a box of tissues to take on their ride home and comforted by validating their emotions. Pt's family verbalized their appreciation and left the hospital after spending time with the pt. This rewriter verbalized to Maksim Sampson Sr. to call this rewriter at the hospital if he had further questions or needed to talk about his loss.
--- NOTE | 2021-05-09 04:54 | PC.NURSE ---
A Maribell from [facility] contacted this proposal manager writer at 04:51 giving the okay to contact the selected home to arrange the cotton picking machine operator of Omayra. Romulo from [facility] [place] was called to which he stated he would be on his way shortly. Pt is now being dressed/prepared for pickup by labor standards director.
--- NOTE | 2021-05-09 05:46 | PC.NURSE ---
Pt was released to Romulo of [facility] at 05:45 05/09/2021. Assistance was provided. Copies of facesheet and release of body form given to Romulo while original copies are in pt's permanent chart.
--- NOTE | 2021-07-12 08:43 | P.DS_ITS ---
DS: Admitting Diagnosis Discharge Date 05/09/21Recieved a phone call from [facility] that patient at [phone] ( I did not personally see patient please see patient medical records ) Admitting Diagnosis Respiratory failure DS: Discharge Diagnosis Discharge Diagnosis (1) Acute exacerbation of chronic obstructive airways disease: Code(s): J44.1 - Chronic obstructive pulmonary disease with (acute) exacerbation Status: Acute DS: Summary Hospital Course Hospital Course: Time Spent with Patient Time attestation: Total time spent providing and/or coordinating discharge s ervices: Discharge Plan Discharge Attending physician on discharge: Sandra Benson Consulting providers: Osbaldo Mora Paul Discharging Clinician: Sandra Benson Patient Disposition: Discharge Instructions: Body released to [facility] home Discharge Medications: Discontinued albuterol sulfate 2.5 mg /3 mL (0.083 %) solution for nebulization 2.5 mg inhalation QID PRN (Reason: Shortness Of Breath) Qty: 90 RF: 0 albuterol sulfate 90 mcg/actuation HFA aerosol inhaler 2 puff inhalation PRN PRN (Reason: Wheezing) RF: 0 Eliquis 5 mg tablet 5 mg PO BID Qty: 120 RF: 0 diltiazem HCl 240 mg capsule,extended release 24 hr 240 mg PO DAILY Qty: 30 RF: 2 escitalopram oxalate 20 mg tablet 20 mg PO DAILY Qty: 30 RF: 2 Breztri Aerosphere 160-9-4.8 mcg/actuation HFA aerosol inhaler 2 inh inhalation BID Qty: 10.7 RF: 2 furosemide 40 mg tablet See Rx Instructions .ROUTE .COMPLEX Qty: 60 RF: 0 Date of admission: 05/08/21 21:19 Primary Care Provider: Sidra Palomo Admitting Provider: Alvarez Villa Attending physician on admission: Alvarez Villa Condition:
== END 2021-05-09 05:45 | disposition expired ==
LOC: CHSED 20:09 → CHS2ND 21:42
PROVIDERS: Nurse Practitioner Family; Admitting Provider Internal Medicine; Emergency Provider Emergency Medicine; PCP Nurse Practitioner Family; Visit Provider Internal Medicine
DX: J44.1 Chronic obstructive pulmonary disease with (acute) exacerbation (principal); J96.20 Acute and chronic respiratory failure, unspecified whether with hypoxia or hypercapnia; I11.0 Hypertensive heart disease with heart failure; I50.9 Heart failure, unspecified; J18.9 Pneumonia, unspecified organism; Z87.891 Personal history of nicotine dependence
CPT/HCPCS: 36415; 36600; 70450; 71045; 80053; 81001; 82805; 83605; 83880; 84484; 85025; 87040; 93005; 94640; 96361; 96365; 96375; 99285; A9270; G0378; J0696; J1940; J2060; J2270; J2930; J7040